=== PATIENT | male | born 1960 | race Caucasian/White ===

== ENCOUNTER 2018-02-13 17:22 | Inpatient (IN) ==
[2018-02-13] MEDS ORDERED: Sod Chloride 0.9% Inj 1,000 ML IV.SIG ONE (17:52)
--- NOTE | 2018-02-13 18:00 | ED ---
HPI General Chief Complaint: Dizziness Stated Complaint: Dizziness/equilibrium off Time Seen by Provider: 02/13/18 19:47 Source: patient Mode of arrival: ambulatory Limitations: no limitations History of Present Illness HPI Narrative: 57-year-old man who presents with 2 hours of dizziness. It is constant but most intense when he moves his head. Lying still seems to help but he still has dizziness even at rest. He denies double vision or loss of vision. He has neck pain in the back of his neck that is been present for some time. He has not had a syncopal event nor does he feel like he might. He has no chest pain or exertional dyspnea. He reports that he has been in poor health as of late. He reports bilateral ankle swelling is been present for some time and he attributes it to be on his feet a lot more than usual. No fever or chills. No facial droop, no unilateral arm or leg weakness, no loss of sensation, no slurred speech. Related Data Home Medications Medication Instructions Recorded Confirmed Creon 24,000 units PO TID 02/13/18 02/13/18 furosemide 20 mg PO BID 02/13/18 02/13/18 ibuprofen 200 mg PO DIRECTED 02/13/18 02/13/18 spironolactone 25 mg PO BID 02/13/18 02/13/18 zolpidem 5 mg PO HS 02/13/18 02/13/18 Previous Rx's Medication Instructions Recorded amoxicillin-pot clavulanate 2 tab PO BID 7 Days #28 tab 02/13/18 Allergies Allergy/AdvReac Type Severity Reaction Status Date / Time No Known Allergies Allergy Unverified 02/13/18 17:31 Review of Systems ROS: all other systems reviewed are negative [facility] Medical History Medical History Bilateral inguinal hernia (Acute) Cirrhosis (Acute) History of carotid artery stenosis (Acute) History of liver disease (Acute) Pancreatitis (Acute) Surgical History Surgical History History of cholecystectomy (Acute) History of hernia repair (Acute) Family History Family History Other No pertinent family history Social History Social History Substance History: No History of Abuse Second Hand Smoke Exposure: Yes Smoking Status: Current every day smoker Tobacco Type: Cigarettes Packs Per Day: 1.5 Cigarettes Per Day: 30.0 Years Smoked: 30 Pack-Years: 45.00 How Often Do You Have a Drink Containing Alcohol: Monthly or less Recent Travel in [facility] within the Last 8 Weeks: No Recent Out of Country Travel within the Last 8 Weeks: No Immunization History Tetanus Immunization: Unsure Hx Influenza Vaccine This Season: No Exam Narrative Exam Narrative: GENERAL: Chronically ill and thin 57-year-old man who appears older than stated age seated on exam stretcher. A male layaway clerk is seated in a chair next to his stretcher. SKIN: Focused skin assessment warm/dry. No rash or other skin lesions observed. HEAD: Atraumatic. Normocephalic. EYES: Pupils equal and round. No scleral icterus. No injection or drainage. ENT: No nasal bleeding or discharge. Mucous membranes pink and moist. NECK: Trachea midline. No JVD. CARDIOVASCULAR: Regular rate and rhythm. No murmur appreciated. RESPIRATORY: No accessory muscle use. Clear to auscultation. Breath sounds equal bilaterally. GASTROINTESTINAL: Abdomen soft, non-tender, nondistended. Hepatic and splenic margins not palpable. MUSCULOSKELETAL: No obvious deformities. No clubbing. No cyanosis. No edema. NEUROLOGICAL: Awake and alert. No obvious cranial nerve deficits. Motor grossly within normal limits. Normal speech. Symmetric but unsteady gait. Unable to tandem walk. 5 out of 5 motor strength in all 4 limbs. Sensation to light touch intact in all 4 limbs. No ataxia of upper or lower extremities. Fredo-Hallpike positive right. PSYCHIATRIC: Appropriate mood and affect; insight and judgment normal. Course Reevaluation(s) Reevaluation #1: Patient's dizziness and neck pain are improved after medication. I performed Memo maneuver on patient at this time and he tolerated it well. Instructed him to try it at home on himself. Time: 19:08 Initial Documented Vital Signs Temperature 97.7 F 02/13/18 17:28 Pulse Rate 92 H 02/13/18 17:28 Respiratory Rate 20 02/13/18 17:28 Blood Pressure 124/77 02/13/18 17:28 Pulse Oximetry 94 L 02/13/18 17:28 Last Documented Vital Signs Temperature 96.4 F L 02/15/18 00:00 Pulse Rate 90 02/15/18 00:00 Respiratory Rate 18 02/15/18 03:33 Blood Pressure 119/80 02/15/18 00:00 Pulse Oximetry 95 02/15/18 00:00 Sign Out Sign Out Data: Patient Sign Out occurred on 02/13/18 at 19:47. Patient's care was discussed, and care was transferred from Natan Reid MD to Deloris Martin MD. Sign Out Comment: Patient signed out to oncoming night physician. Discussed findings of right effusion that is consistent with a pneumonia. Also discussed my feeling that this is likely consistent with BPPV. Patient is pending repeat troponin at 3 hours. Last updated by Natan Reid MD at 02/13/18 19:28 Clinical Decision Support HEART Score Questions History: Slightly suspicious Age: 45-64 years Risk Factors: 1-2 Risk Factors Initial Troponin: Normal Limit Medical Decision Making MDM Narrative Medical decision making narrative: Chronically ill 57-year-old man with 2 hour history of positional dizziness. Although he has vascular risk factors I feel that a posterior circulation stroke is less likely on the basis of exam. He had a positive Fredo-Hallpike test and there are no cranial nerve abnormalities that I would expect with possible posterior stroke. He does not have truncal ataxia which suggest against cerebellar stroke or bleed. However I will obtain CT head given his health issues. Will also check electrolytes, renal function, blood glucose value and cell counts. I doubt the dizziness is an anginal equivalent but given his vascular risk factors I will order ECG and serial troponins. We will give meclizine for dizziness and attempt Memo maneuver. Patient was identified to have right pleural effusion and changes concerning for right lower lobe infiltrate on portable chest x-ray was treated with Rocephin and azithromycin with prescription provided for Augmentin at time of discharge. 3 hour troponin pending. Patient reports that he has had no chest pain but notes pleuritic chest pain with deep inspiratory effort has had shortness of breath has had weight loss and states he was not aware he had to wait for a troponin but is willing to do so is aware he was supposed receive antibiotics prior to being discharged. Patient does have primary care provider that he can follow with as an outpatient. However in view of effusion possible pneumonia versus mass with O2 saturation 91% on room air patient will be given DuoNeb updraft and CTA pulmonary angiogram will be ordered and will reassess patient afterwards to see if O2 saturations in acceptable range except 96% as noted upon arrival to the emergency department. Medical Screen Exam Complete: Yes Emergency Medical Condition: Yes Lab Data Lab results reviewed: Yes I reviewed the patient's lab results. Result diagrams: 02/15/18 04:55 02/15/18 04:55 Lab Results 02/13/18 02/13/18 02/13/18 Range/Units 18:10 18:10 21:15 CBC w Diff Slide review pending WBC 15.7 H (4.0-11.0) th/mm3 RBC 5.04 (4.50-5.90) mil/mm3 Hgb 14.5 (13.0-17.0) gm/dL Hct 43.9 (39.0-51.0) % MCV 87.1 (80.0-100.0) fL MCH 28.8 (27.0-34.0) pg MCHC 33.0 (32.0-36.0) % RDW 14.8 (11.6-17.2) % Plt Count 753 H (150-450) th/mm3 MPV 8.0 (7.0-11.0) fL Neut % (Auto) (16.0-70.0) % Lymph % (Auto) (9.0-44.0) % Traill % (Auto) (0.0-8.0) % Eos % (Auto) (0.0-4.0) % Baso % (Auto) (0.0-2.0) % Neut # (Auto) (1.8-7.7) th/mm3 Lymph # (Auto) (1.0-4.8) th/mm3 Traill # (Auto) (0.0-0.9) th/mm3 Eos # (Auto) (0.0-0.4) th/mm3 Baso # (Auto) (0.0-0.2) th/mm3 WBC Differential Manual diff final Diff Scan Seg Neuts % (Manual) 82 H (16-70) % Band Neuts % (Manual) 3 (0-6) % Lymphocytes % (Manual) 4 L (9-44) % Monocytes % (Manual) 7 (0-8) % Eosinophils % (Manual) 4 (0-4) % Abs Neuts (Manual) 13.3 H (1.8-7.7) th/mm3 Differential Comment . Platelet Estimate High H (Normal) Platelet Morphology Normal (Normal) RBC Morphology Normal (Normal) PT (9.8-11.6) sec INR Ratio APTT Sodium 133 L (136-145) meq/L Potassium 4.6 (3.5-5.1) meq/L Chloride 104 (98-107) meq/L Carbon Dioxide 22.9 (21.0-32.0) meq/L Anion Gap 6 (5-15) meq/L BUN 13 (7-18) mg/dL Creatinine 0.70 (0.60-1.30) mg/dL Estimated GFR Greater than 89 (>89) mL/min Random Glucose 80 (74-106) mg/dL Calcium 7.3 L* (8.5-10.1) mg/dL Prot Corrected Calcium 9.0 (8.5-10.1) mg/dL Total Bilirubin (0.2-1.0) mg/dL AST (15-37) U/L ALT (12-78) U/L Alkaline Phosphatase (45-117) U/L Troponin I Less than 0.02 L Less than 0.02 L (0.02-0.05) ng/mL Total Protein 4.2 L (6.4-8.2) g/dL Albumin (3.4-5.0) g/dL Pleural RBC (0-0) /mm3 Pleural Nuc Cells (0-10) /mm3 Pleural Neutrophils % Pleural Lymphocytes % Pleural Monocytes % Pleural Histocytes % Pleural Total Protein gm/dL Pleural LDH U/L Pleural Glucose mg/dL Pleural Amylase U/L 02/14/18 02/14/18 02/14/18 Range/Units 04:47 04:47 08:34 CBC w Diff Slide review pending WBC 12.8 H (4.0-11.0) th/mm3 RBC 4.56 (4.50-5.90) mil/mm3 Hgb 13.4 (13.0-17.0) gm/dL Hct 40.7 (39.0-51.0) % MCV 89.3 (80.0-100.0) fL MCH 29.3 (27.0-34.0) pg MCHC 32.8 (32.0-36.0) % RDW 14.7 (11.6-17.2) % Plt Count 639 H (150-450) th/mm3 MPV 7.6 (7.0-11.0) fL Neut % (Auto) 83.4 H (16.0-70.0) % Lymph % (Auto) 3.7 L (9.0-44.0) % Traill % (Auto) 8.7 H (0.0-8.0) % Eos % (Auto) 1.6 (0.0-4.0) % Baso % (Auto) 2.6 H (0.0-2.0) % Neut # (Auto) 10.6 H (1.8-7.7) th/mm3 Lymph # (Auto) 0.5 L (1.0-4.8) th/mm3 Traill # (Auto) 1.1 H (0.0-0.9) th/mm3 Eos # (Auto) 0.2 (0.0-0.4) th/mm3 Baso # (Auto) 0.3 H (0.0-0.2) th/mm3 WBC Differential . Diff Scan Auto diff confirmed Seg Neuts % (Manual) (16-70) % Band Neuts % (Manual) (0-6) % Lymphocytes % (Manual) (9-44) % Monocytes % (Manual) (0-8) % Eosinophils % (Manual) (0-4) % Abs Neuts (Manual) (1.8-7.7) th/mm3 Differential Comment . Platelet Estimate High H (Normal) Platelet Morphology Normal (Normal) RBC Morphology (Normal) PT (9.8-11.6) sec INR Ratio APTT Cancelled Sodium 135 L (136-145) meq/L Potassium 4.2 (3.5-5.1) meq/L Chloride 106 (98-107) meq/L Carbon Dioxide 20.8 L (21.0-32.0) meq/L Anion Gap 8 (5-15) meq/L BUN 13 (7-18) mg/dL Creatinine 0.57 L (0.60-1.30) mg/dL Estimated GFR Greater than 89 (>89) mL/min Random Glucose 79 (74-106) mg/dL Calcium 7.6 L (8.5-10.1) mg/dL Prot Corrected Calcium (8.5-10.1) mg/dL Total Bilirubin 0.1 L (0.2-1.0) mg/dL AST 26 (15-37) U/L ALT 18 (12-78) U/L Alkaline Phosphatase 77 (45-117) U/L Troponin I (0.02-0.05) ng/mL Total Protein 4.1 L (6.4-8.2) g/dL Albumin 1.2 L (3.4-5.0) g/dL Pleural RBC (0-0) /mm3 Pleural Nuc Cells (0-10) /mm3 Pleural Neutrophils % Pleural Lymphocytes % Pleural Monocytes % Pleural Histocytes % Pleural Total Protein gm/dL Pleural LDH U/L Pleural Glucose mg/dL Pleural Amylase U/L 02/14/18 02/14/18 02/14/18 Range/Units 08:50 11:45 11:45 CBC w Diff WBC (4.0-11.0) th/mm3 RBC (4.50-5.90) mil/mm3 Hgb (13.0-17.0) gm/dL Hct (39.0-51.0) % MCV (80.0-100.0) fL MCH (27.0-34.0) pg MCHC (32.0-36.0) % RDW (11.6-17.2) % Plt Count (150-450) th/mm3 MPV (7.0-11.0) fL Neut % (Auto) (16.0-70.0) % Lymph % (Auto) (9.0-44.0) % Traill % (Auto) (0.0-8.0) % Eos % (Auto) (0.0-4.0) % Baso % (Auto) (0.0-2.0) % Neut # (Auto) (1.8-7.7) th/mm3 Lymph # (Auto) (1.0-4.8) th/mm3 Traill # (Auto) (0.0-0.9) th/mm3 Eos # (Auto) (0.0-0.4) th/mm3 Baso # (Auto) (0.0-0.2) th/mm3 WBC Differential Diff Scan Seg Neuts % (Manual) (16-70) % Band Neuts % (Manual) (0-6) % Lymphocytes % (Manual) (9-44) % Monocytes % (Manual) (0-8) % Eosinophils % (Manual) (0-4) % Abs Neuts (Manual) (1.8-7.7) th/mm3 Differential Comment Platelet Estimate (Normal) Platelet Morphology (Normal) RBC Morphology (Normal) PT 9.4 L (9.8-11.6) sec INR 0.9 Ratio APTT 23.6 L Sodium (136-145) meq/L Potassium (3.5-5.1) meq/L Chloride (98-107) meq/L Carbon Dioxide (21.0-32.0) meq/L Anion Gap (5-15) meq/L BUN (7-18) mg/dL Creatinine (0.60-1.30) mg/dL Estimated GFR (>89) mL/min Random Glucose (74-106) mg/dL Calcium (8.5-10.1) mg/dL Prot Corrected Calcium (8.5-10.1) mg/dL Total Bilirubin (0.2-1.0) mg/dL AST (15-37) U/L ALT (12-78) U/L Alkaline Phosphatase (45-117) U/L Troponin I (0.02-0.05) ng/mL Total Protein (6.4-8.2) g/dL Albumin (3.4-5.0) g/dL Pleural RBC 160 H (0-0) /mm3 Pleural Nuc Cells 53 H (0-10) /mm3 Pleural Neutrophils 65 % Pleural Lymphocytes 18 % Pleural Monocytes 15 % Pleural Histocytes 2 % Pleural Total Protein 0.5 gm/dL Pleural LDH 42 U/L Pleural Glucose 99 mg/dL Pleural Amylase 15 U/L 02/15/18 02/15/18 Range/Units 04:55 04:55 CBC w Diff Auto diff final WBC 13.3 H (4.0-11.0) th/mm3 RBC 4.54 (4.50-5.90) mil/mm3 Hgb 13.5 (13.0-17.0) gm/dL Hct 41.0 (39.0-51.0) % MCV 90.4 (80.0-100.0) fL MCH 29.8 (27.0-34.0) pg MCHC 33.0 (32.0-36.0) % RDW 15.3 (11.6-17.2) % Plt Count 569 H (150-450) th/mm3 MPV 7.8 (7.0-11.0) fL Neut % (Auto) 80.6 H (16.0-70.0) % Lymph % (Auto) 4.1 L (9.0-44.0) % Traill % (Auto) 8.1 H (0.0-8.0) % Eos % (Auto) 3.7 (0.0-4.0) % Baso % (Auto) 3.5 H (0.0-2.0) % Neut # (Auto) 10.7 H (1.8-7.7) th/mm3 Lymph # (Auto) 0.5 L (1.0-4.8) th/mm3 Traill # (Auto) 1.1 H (0.0-0.9) th/mm3 Eos # (Auto) 0.5 H (0.0-0.4) th/mm3 Baso # (Auto) 0.5 H (0.0-0.2) th/mm3 WBC Differential . Diff Scan Seg Neuts % (Manual) (16-70) % Band Neuts % (Manual) (0-6) % Lymphocytes % (Manual) (9-44) % Monocytes % (Manual) (0-8) % Eosinophils % (Manual) (0-4) % Abs Neuts (Manual) (1.8-7.7) th/mm3 Differential Comment . Platelet Estimate (Normal) Platelet Morphology (Normal) RBC Morphology (Normal) PT (9.8-11.6) sec INR Ratio APTT Sodium 139 (136-145) meq/L Potassium 4.7 (3.5-5.1) meq/L Chloride 106 (98-107) meq/L Carbon Dioxide 24.7 (21.0-32.0) meq/L Anion Gap 8 (5-15) meq/L BUN 12 (7-18) mg/dL Creatinine 0.66 (0.60-1.30) mg/dL Estimated GFR Greater than 89 (>89) mL/min Random Glucose 94 (74-106) mg/dL Calcium 7.6 L (8.5-10.1) mg/dL Prot Corrected Calcium (8.5-10.1) mg/dL Total Bilirubin (0.2-1.0) mg/dL AST (15-37) U/L ALT (12-78) U/L Alkaline Phosphatase (45-117) U/L Troponin I (0.02-0.05) ng/mL Total Protein (6.4-8.2) g/dL Albumin (3.4-5.0) g/dL Pleural RBC (0-0) /mm3 Pleural Nuc Cells (0-10) /mm3 Pleural Neutrophils % Pleural Lymphocytes % Pleural Monocytes % Pleural Histocytes % Pleural Total Protein gm/dL Pleural LDH U/L Pleural Glucose mg/dL Pleural Amylase U/L Imaging Data Radiologist's impression: Chest X-Ray 02/13/18 17:52 CONCLUSION: New small to moderate right effusion with consolidation in the right lower lobe most characteristic of pneumonia. Head CT 02/13/18 17:52 CONCLUSION: 1. No acute hemorrhage, mass affect or evidence of acute infarction. 2. Focal area of encephalomalacia involving the posterior right frontal lobe most consistent with sequelae of prior infarction or hemorrhage. . Chest CTA 02/13/18 20:01 CONCLUSION: 1. No evidence of acute pulmonary embolism. 2. Right hilar mass with narrowing of the right pulmonary artery and proximal branch vessels. Findings concerning for adenopathy versus primary bronchogenic carcinoma. 3. Moderate size right effusion with consolidation in the right lower lobe. 4. Underlying emphysema. Chest X-Ray 02/14/18 00:00 CONCLUSION: Status post right thoracentesis. No evidence of pneumothorax. Thoracentesis Ultrasound 02/14/18 00:00 CONCLUSION: 1. Status post successful right-sided thoracentesis. Discharge Plan Discharge Disposition Patient Disposition: 30 Still Patient Discharge Condition Condition: Stable Discharge Details Diagnosis: Pneumonia of right lower lobe due to infectious organism, Pleural effusion on right, Dizziness Physicians Team ED Provider: Deloris Martin Primary Care Provider: Clifton Red Attending Provider: Gianni Jin Other Providers: Carleen Miranda ; Adam Mulligan Status ED Status: Left Department Discharge Information Discharge Date/Time: 02/13/18 23:57
--- NOTE | 2018-02-13 18:29 | XR ---
EXAM DATE: 02/13/2018 6:24 PM EDT AGE/SEX: 57 years / Male INDICATIONS: Short of breath, cough CLINICAL DATA: This is the patient's initial encounter. Patient reports that signs and symptoms have been present for 2 days and indicates a pain score of 0/10. MEDICAL/SURGICAL HISTORY: . Pancreatitis. Cirrhosis None. COMPARISON: [facility], CHEST SINGLE AP, 02/20/2016. . FINDINGS: 2 AP views of the chest were obtained and demonstrate new small to moderate right pleural effusion wi th blunting of the right costophrenic angle. There is consolidative opacity in the right lower lobe a nd right infrahilar region. The left lung is clear. The heart size is within normal limits. The bony thorax is intact. There are mild atherosclerotic changes involving the aorta. There are overlying boubacar ctrocardiogram leads. CONCLUSION: New small to moderate right effusion with consolidation in the right lower lobe most characteristic o f pneumonia. Electronically signed by: Gianni Joya MD 02/13/2018 6:27 PM EDT
--- NOTE | 2018-02-13 18:56 | CT ---
EXAM DATE: 02/13/2018 6:50 PM EDT AGE/SEX: 57 years / Male INDICATIONS: Dizziness. CLINICAL DATA: This is the patient's initial encounter. Patient reports that signs and symptoms have been present for 1 day and indicates a pain score of 0/10. MEDICAL/SURGICAL HISTORY: . Bilateral inguinal hernia. Carotid artery stenosis. Liver disease. Non e. RADIATION DOSE: 49.78 CTDI (mGy) COMPARISON: No prior exams available for comparison. TECHNIQUE: CT of the head without contrast. Using automated exposure control and adjustment of the mA and/or kV according to patient size, radiation dose was kept as low as reasonably achievable to ob tain optimal diagnostic quality images. DICOM format image data is available electronically for revi ew and comparison. FINDINGS: Cerebrum: The ventricles are normal for age. No evidence of midline shift, mass lesion, hemorrhage or acute infarction. There is a focal area of encephalomalacia involving the posterior right frontal lobe. No extraaxial fluid collections are seen. Posterior Fossa: The cerebellum and brainstem are intact. The 4th ventricle is midline. The cerebe llopontine angle is unremarkable. Extracranial: The visualized portion of the orbits is intact. Skull: The calvaria is intact. No evidence of skull fracture. CONCLUSION: 1. No acute hemorrhage, mass affect or evidence of acute infarction. 2. Focal area of encephalomalacia involving the posterior right frontal lobe most consistent with se quelae of prior infarction or hemorrhage. . Electronically signed by: Gianni Joya MD 02/13/2018 6:55 PM EDT
[2018-02-13 18:57] LABS: Hematocrit 43.9 % (39.0-51.0); Hemoglobin 14.5 gm/dL (13.0-17.0); Mean Corpuscular Hemoglobin 28.8 pg (27.0-34.0); Mean Corpuscular Volume 87.1 fL (80.0-100.0); Platelet Count 753 th/mm3 (150-450); Red Blood Count 5.04 mil/mm3 (4.50-5.90); Red Cell Distribution Width 14.8 % (11.6-17.2); White Blood Count 15.7 th/mm3 (4.0-11.0)
[2018-02-13 19:01] LABS: Chloride 104 meq/L (98-107); Potassium 4.6 meq/L (3.5-5.1); Sodium 133 meq/L (136-145)
[2018-02-13] MEDS ORDERED: Azithromycin 250 MG Tablet PO ONE (19:06)
[2018-02-13 19:13] LABS: Eosinophils 4 % (0-4); Lymphocytes 4 % (9-44); Monocytes 7 % (0-8); Platelet Morphology Normal (Normal); RBC Morphology Normal (Normal)
[2018-02-13 19:20] LABS: Anion Gap 6 meq/L (5-15); Blood Urea Nitrogen 13 mg/dL (7-18); Calcium 7.3 mg/dL (8.5-10.1); Carbon Dioxide 22.9 meq/L (21.0-32.0); Glomerular Filtration Rate Greater Than 89 mL/min (>89); Glucose,Random 80 mg/dL (74-106)
[2018-02-13 19:33] LABS: Total Protein 4.2 g/dL (6.4-8.2)
[2018-02-13] MEDS ORDERED: Sodium Chlor 0.9% Inj 500 ML IV.SIG SCH (21:00)
--- NOTE | 2018-02-13 21:28 | CT ---
EXAM DATE: 02/13/2018 9:23 PM EDT AGE/SEX: 57 years / Male INDICATIONS: Dizziness. Possible embolism. CLINICAL DATA: This is the patient's initial encounter. Patient reports that signs and symptoms have been present for 1 day and indicates a pain score of 0/10. MEDICAL/SURGICAL HISTORY: . Bilateral inguinal hernia. Carotid artery stenosis. Liver disease. Cho lecystectomy. RADIATION DOSE: 8.27 CTDI (mGy) COMPARISON: [facility], CHEST 1V SINGLE AP, 02/13/2018. . TECHNIQUE: Volumetric scanning was performed using a multi-row detector CT scanner during bolus infu corie of 75 ml Omnipaque 350 (iohexol) nonionic water-soluble contrast as a single exam dose. The collin a was post processed with a variety of visualization algorithms including full volume maximum intensi ty projection and sliding thin slab reformation. Using automated exposure control and adjustment of t he mA and/or kV according to patient size, radiation dose was kept as low as reasonably achievable to obtain optimal diagnostic quality images. DICOM format image data is available electronically for r eview and comparison. FINDINGS: Pulmonary Arteries: No filling defects are seen in the pulmonary arteries out to the subsegmental ve ssels. The left and right pulmonary arteries are normal in diameter. Lung: There is consolidation in the right lung base which may be compressive. The left lung is clear . Lungs are hyperinflated with underlying emphysema. Effusion: There is a moderate-sized right pleural effusion minimal left pleural effusion. Mediastinum: There is right hilar mass versus adenopathy with attenuation of the right pulmonary art yoselin branch vessels. The mass measures up to at least 5 cm. Other: The axilla is unremarkable. CONCLUSION: 1. No evidence of acute pulmonary embolism. 2. Right hilar mass with narrowing of the right pulmonary artery and proximal branch vessels. Findin gs concerning for adenopathy versus primary bronchogenic carcinoma. 3. Moderate size right effusion with consolidation in the right lower lobe. 4. Underlying emphysema. Electronically signed by: Gianni Joya MD 02/13/2018 9:26 PM EDT
[2018-02-13] MEDS ORDERED: Bisacodyl 10 MG Supp RECTAL PRN (22:21)
[2018-02-14] MEDS: Zolpidem Tartrate 5 MG Tablet PO PRN ×2 (00:12→21:38)
[2018-02-14] MEDS: Sod Chloride 0.9% Inj 1,000 ML IV.CONT SCH ×3 (00:20→18:50)
[2018-02-14] MEDS ORDERED: Benzonatate 100 MG Capsule PO PRN (03:40)
[2018-02-14 06:11] LABS: Baso # (Auto) 0.3 th/mm3 (0.0-0.2); Baso % (Auto) 2.6 % (0.0-2.0); Eos # (Auto) 0.2 th/mm3 (0.0-0.4); Eos % (Auto) 1.6 % (0.0-4.0); Hematocrit 40.7 % (39.0-51.0); Hemoglobin 13.4 gm/dL (13.0-17.0); Lymph # (Auto) 0.5 th/mm3 (1.0-4.8); Lymph % (Auto) 3.7 % (9.0-44.0); Mean Corpuscular HGB Conc 32.8 % (32.0-36.0); Mean Corpuscular Hemoglobin 29.3 pg (27.0-34.0); Mean Corpuscular Volume 89.3 fL (80.0-100.0); Mean Platelet Volume 7.6 fL (7.0-11.0); Mono # (Auto) 1.1 th/mm3 (0.0-0.9); Mono % (Auto) 8.7 % (0.0-8.0); Neut # (Auto) 10.6 th/mm3 (1.8-7.7); Neut % (Auto) 83.4 % (16.0-70.0); Platelet Count 639 th/mm3 (150-450); Red Blood Count 4.56 mil/mm3 (4.50-5.90); Red Cell Distribution Width 14.7 % (11.6-17.2); White Blood Count 12.8 th/mm3 (4.0-11.0)
[2018-02-14 06:14] LABS: Chloride 106 meq/L (98-107); Potassium 4.2 meq/L (3.5-5.1); Sodium 135 meq/L (136-145)
[2018-02-14 06:20] LABS: Albumin 1.2 g/dL (3.4-5.0); Anion Gap 8 meq/L (5-15); Blood Urea Nitrogen 13 mg/dL (7-18); Calcium 7.6 mg/dL (8.5-10.1); Carbon Dioxide 20.8 meq/L (21.0-32.0); Glucose,Random 79 mg/dL (74-106)
[2018-02-14 06:23] LABS: Alanine Aminotransferase 18 U/L (12-78); Aspartate Aminotransferase 26 U/L (15-37); Glomerular Filtration Rate Greater Than 89 mL/min (>89)
[2018-02-14 06:25] LABS: Total Protein 4.1 g/dL (6.4-8.2)
[2018-02-14 06:26] LABS: Alkaline Phosphatase 77 U/L (45-117)
[2018-02-14 06:45] LABS: Platelet Morphology Normal (Normal)
[2018-02-14] MEDS: Acetaminophen 325 MG Tablet PO PRN ×3 (07:39→18:54)
--- NOTE | 2018-02-14 08:54 | P.HP ---
History of Present Illness Primary Care Physician: Clifton Red MD Chief Complaint: Dizziness History of Present Illness: 57-year-old male with known history of COPD, cirrhosis of liver who presented to the hospital because of dizziness. Patient states that he was in normal state of health until yesterday when he went to get up and had significant dizziness like the room was spinning. He cannot walk due to disequilibrium. The patient was concerned so he called the paramedics. They did an evaluation on him at his home and indicated that what they did was unremarkable. The indicated that if he was concerned then he should go to the hospital to get evaluated. Patient came into the hospital with dizziness. Patient was given meclizine in the emergency department with significant improvement and resolution of his dizziness. CT the brain did not indicate any acute abnormality. Incidentally the patient had chest x-ray performed which did show pleural effusion and possible consolidation. CTA of the chest was performed which did show significant right-sided pleural effusion with bronchogenic mass. It was recommended by the ER physician of the patient be observed in the hospital for further evaluation. Patient laying in bed comfortable at this time. Appears to be very cachectic, patient does have a 30 year history of smoking. He has had a weight loss over the last week with increased shortness of breath. Patient cannot quantify how much weight he has lost. Patient denies any family history of cancer. Patient denies any history of lung masses or cancer. - Diagnosis (1) Mass of right lung (2) Pneumonia of right lower lobe due to infectious organism (3) Pleural effusion on right Review of Systems All other systems reviewed negative except as stated in HPI Constitutional: Reports weight loss Respiratory: Reports shortness of breath Neurologic: Reports dizziness PMFSH - History History Provided By: Patient - Medical History Medical History: Medical History (Last Updated 02/14/18 @ 08:29 by WENDY Santoro) Bilateral inguinal hernia Cirrhosis History of carotid artery stenosis History of liver disease Pancreatitis - Surgical History Surgical History: Surgical History (Last Updated 02/14/18 @ 08:30 by WENDY Santoro) History of cholecystectomy History of hernia repair - Family History Family History: Family History (Last Updated 02/14/18 @ 08:27 by WENDY Santoro) Other No pertinent family history - Tobacco History Second Hand Smoke Exposure: Yes Tobacco Use In Past 30 Days: Yes Smoking Status: Current every day smoker Tobacco Type: Cigarettes Packs Per Day: 1.5 Years Smoked: 30 - Alcohol History How Often Do You Have a Drink Containing Alcohol: Monthly or less - Substance Use History Substance History: No History of Abuse - Travel History Recent Travel in the [place] Within the Last 8 Weeks: No Recent Travel Out of the Country Within the Last 8 Weeks: No - Immunization History Tetanus Immunization: Unsure Hx Influenza Vaccine This Season: No Medications and Allergies Active Medications: Active Medications Acetaminophen (Tylenol) 650 mg PO Q4H PRN PRN Reason: Temp > 100.4 Last Admin: 02/14/18 07:39 Dose: 650 mg Al Hydroxide/Mg Hydroxide (Milk Of Magnesia Liq) 30 ml PO Q12H PRN PRN Reason: Mild Constipation Albuterol (Duoneb Neb (Prn)) 1 ampul NEB Q4HR NEB PRN PRN Reason: SOB/WHEEZING Last Admin: 02/14/18 00:46 Dose: 1 ampul Lipase/Protease/Amylase (Creon Dr 24/76/120) 24,000 cap PO TID EYAD Benzonatate (Tessalon Perles) 100 mg PO Q8H PRN PRN Reason: COUGH Last Admin: 02/14/18 03:50 Dose: 100 mg Bisacodyl (Dulcolax Supp) 10 mg RECTAL DAILY PRN PRN Reason: SEVERE CONSITIPATION Furosemide (Lasix) 20 mg PO BID EYAD Sodium Chloride (Ns Inj) 500 mls @ 0 mls/hr IV.SIG BOLUS EYAD Azithromycin 500 mg/ Sodium (Chloride) 250 mls @ 250 mls/hr IV.SIG Q24H EYAD Ceftriaxone Sodium 1,000 mg/ (Sodium Chloride) 100 mls @ 200 mls/hr IV.SIG Q24H EYAD Sodium Chloride (Ns Inj) 1,000 mls @ 100 mls/hr IV.CONT .Q10H EYAD Last Admin: 02/14/18 00:20 Dose: 100 mls/hr Lactulose (Lactulose Liq) 30 ml PO DAILY PRN PRN Reason: SEVERE CONSITIPATION Ondansetron HCl (Zofran Inj) 4 mg IV.PUSH Q6H PRN PRN Reason: NAUSEA OR VOMITING Senna/Docusate Sodium (Sangeeta-Colace) 1 tab PO BID EYAD Sennosides (Senokot) 17.2 mg PO Q12H PRN PRN Reason: Moderate Constipation Sodium Chloride (Ns Flush) 2 ml IV.FLUSH PRN PRN PRN Reason: FLUSH AFTER USING IV ACCESS Last Admin: 02/13/18 18:21 Dose: 2 ml Spironolactone (Aldactone) 25 mg PO BID EYAD Zolpidem Tartrate (Ambien) 5 mg PO HS PRN PRN Reason: SLEEP Last Admin: 02/14/18 00:12 Dose: 5 mg Allergies Allergy/AdvReac Type Severity Reaction Status Date / Time No Known Allergies Allergy Unverified 02/13/18 17:31 Home Medications Medication Instructions Recorded Confirmed Type Creon 24,000 units PO TID 02/13/18 02/13/18 History furosemide 20 mg PO BID 02/13/18 02/13/18 History ibuprofen 200 mg PO DIRECTED 02/13/18 02/13/18 History spironolactone 25 mg PO BID 02/13/18 02/13/18 History zolpidem 5 mg PO HS 02/13/18 02/13/18 History Exam Vital signs: Vital Signs 02/13/18 17:28 02/13/18 17:53 02/13/18 18:17 Temperature 97.7 F Pulse Rate 92 H 89 Respiratory Rate 20 18 Blood Pressure 124/77 133/94 H Pulse Oximetry 94 L 96 02/13/18 20:17 02/13/18 23:40 02/14/18 00:00 Temperature 97.3 F L Pulse Rate 90 85 89 Respiratory Rate 16 16 20 Blood Pressure 99/59 L 131/87 Pulse Oximetry 97 93 L 02/14/18 00:45 02/14/18 00:47 Temperature Pulse Rate 84 Respiratory Rate 16 Blood Pressure Pulse Oximetry 95 Intake & Output 02/13/18 02/14/18 02/14/18 18:59 06:59 18:59 Intake Total 1100 / 1100 Balance 1100 / 1100 Weight 59.2 kg 59.9 kg Intake: IV 1100 / 1100 NS Inj 1,000 ML @ Wide Open IV. 1000 / 1000 SIG BOLUS ONE Rx#:[id number] Rocephin Inj 1,000 MG In NS Inj 100 / 100 100 ML @ 200 mls/hr IV.SIG ONCE ONE Rx#:[id number] Other: # Voids 1 Weight On Admission 59.9 kg Narrative: GENERAL: Well-developed, cachectic, in no acute distress. alert and orientated HEENT: Head is normocephalic without any lesions or masses noted. Facial features are symmetric. Bitemporal wasting. Eyes: Pupils equal round reactive to light. Extraocular muscles are intact. Conjunctivae were clear. Oropharyngeal : Pharynx without any erythema edema. Tongue is midline without deviation. Buccal mucosa is moist without any masses or lesions NECK: Supple without any masses. Trachea midline no deviation. No JVD, no bruits are appreciated CARDIAC: Regular rhythm, regular rate. S1/S2 are heard. No murmurs gallops or rubs. LUNGS: Patient had decreased breath sounds noted in the right lower lung field. No wheeze, rhonchi or rales. No use of accessory muscles on inspiration or expiration. ABDOMEN: Soft, nontender. Nondistended. Bowel sounds heard in all 4 quadrants. No organomegaly or masses. Negative rebound, negative guarding EXTREMITIES: No edema, pulses are equal bilaterally. No cyanosis or clubbing NEUROLOGY: Mood and affect appear appropriate. Cranial nerves II through XII grossly intact. Muscle strength 5/5 in upper and lower extremities bilaterally. Deep tendon reflexes are 2+ in upper and lower extremities bilaterally. Results - Labs CBC & Chem 7: 02/14/18 04:47 02/14/18 04:47 Labs: Laboratory Results - last 24 hr 02/13/18 02/13/18 02/13/18 18:10 18:10 21:15 CBC w Diff Slide review pending WBC 15.7 H RBC 5.04 Hgb 14.5 Hct 43.9 MCV 87.1 MCH 28.8 MCHC 33.0 RDW 14.8 Plt Count 753 H MPV 8.0 Neut % (Auto) Lymph % (Auto) Dixon % (Auto) Eos % (Auto) Baso % (Auto) Neut # (Auto) Lymph # (Auto) Dixon # (Auto) Eos # (Auto) Baso # (Auto) WBC Differential Manual diff final Diff Scan Seg Neuts % (Manual) 82 H Band Neuts % (Manual) 3 Lymphocytes % (Manual) 4 L Monocytes % (Manual) 7 Eosinophils % (Manual) 4 Abs Neuts (Manual) 13.3 H Differential Comment . Platelet Estimate High H Platelet Morphology Normal RBC Morphology Normal Sodium 133 L Potassium 4.6 Chloride 104 Carbon Dioxide 22.9 Anion Gap 6 BUN 13 Creatinine 0.70 Estimated GFR Greater than 89 Random Glucose 80 Calcium 7.3 L* Prot Corrected Calcium 9.0 Total Bilirubin AST ALT Alkaline Phosphatase Troponin I Less than 0.02 L Less than 0.02 L Total Protein 4.2 L Albumin 02/14/18 02/14/18 04:47 04:47 CBC w Diff Slide review pending WBC 12.8 H RBC 4.56 Hgb 13.4 Hct 40.7 MCV 89.3 MCH 29.3 MCHC 32.8 RDW 14.7 Plt Count 639 H MPV 7.6 Neut % (Auto) 83.4 H Lymph % (Auto) 3.7 L Dixon % (Auto) 8.7 H Eos % (Auto) 1.6 Baso % (Auto) 2.6 H Neut # (Auto) 10.6 H Lymph # (Auto) 0.5 L Dixon # (Auto) 1.1 H Eos # (Auto) 0.2 Baso # (Auto) 0.3 H WBC Differential . Diff Scan Auto diff confirmed Seg Neuts % (Manual) Band Neuts % (Manual) Lymphocytes % (Manual) Monocytes % (Manual) Eosinophils % (Manual) Abs Neuts (Manual) Differential Comment . Platelet Estimate High H Platelet Morphology Normal RBC Morphology Sodium 135 L Potassium 4.2 Chloride 106 Carbon Dioxide 20.8 L Anion Gap 8 BUN 13 Creatinine 0.57 L Estimated GFR Greater than 89 Random Glucose 79 Calcium 7.6 L Prot Corrected Calcium Total Bilirubin 0.1 L AST 26 ALT 18 Alkaline Phosphatase 77 Troponin I Total Protein 4.1 L Albumin 1.2 L - Imaging Impressions Chest X-Ray 02/13/18 17:52 CONCLUSION: New small to moderate right effusion with consolidation in the right lower lobe most characteristic of pneumonia. Head CT 02/13/18 17:52 CONCLUSION: 1. No acute hemorrhage, mass affect or evidence of acute infarction. 2. Focal area of encephalomalacia involving the posterior right frontal lobe most consistent with sequelae of prior infarction or hemorrhage. . Chest CTA 02/13/18 20:01 CONCLUSION: 1. No evidence of acute pulmonary embolism. 2. Right hilar mass with narrowing of the right pulmonary artery and proximal branch vessels. Findings concerning for adenopathy versus primary bronchogenic carcinoma. 3. Moderate size right effusion with consolidation in the right lower lobe. 4. Underlying emphysema. Caprini VTE Risk Assessment Caprini VTE Risk Assessment: Moderate/High Risk (score >= 2) Caprini Risk Assessment Model: Point Value = 1 Point Value = 2 Point Value = 3 Point Value = 5 Age 41-60 Minor surgery BMI > 25 kg/m2 Swollen legs Varicose veins or History of unexplained or recurrent spontaneous Oral contraceptives or hormone replacement Sepsis (< 1 month) Serious lung disease, including pneumonia (< 1 month) Abnormal pulmonary function Acute myocardial infarction Congestive heart failure (< 1 month) History of inflammatory bowel disease Medical patient at bed rest Age 61-74 Arthroscopic surgery Major open surgery (> 45 min) Laparoscopic surgery (> 45 min) Malignancy Confined to bed (> 72 hours) Immobilizing plaster cast Central venous access Age >= 75 History of VTE Family history of VTE Factor V Leiden Prothrombin [id number] Lupus anticoagulant Anticardiolipin antibodies Elevated serum homocysteine Heparin-induced thrombocytopenia Other congenital or acquired thrombophilia Stroke (< 1 month) Elective arthroplasty Hip, pelvis, or leg fracture Acute spinal cord injury (< 1 month) Prophylaxis Regimen: Total Risk Factor Score Risk Level Prophylaxis Regimen 0-1 Low Early ambulation 2 Moderate Order ONE of the following: *Sequential Compression Device (SCD) *Heparin 5000 units SQ BID 3-4 Higher Order ONE of the following medications: *Heparin 5000 units SQ TID *Enoxaparin/Lovenox 40 mg SQ daily (WT < 150 kg, CrCl > 30 mL/min) *Enoxaparin/Lovenox 30 mg SQ daily (WT < 150 kg, CrCl > 10-29 mL/min) *Enoxaparin/Lovenox 30 mg SQ BID (WT < 150 kg, CrCl > 30 mL/min) AND/OR *Sequential Compression Device (SCD) 5 or more Highest Order ONE of the following medications: *Heparin 5000 units SQ TID (Preferred with Epidurals) *Enoxaparin/Lovenox 40 mg SQ daily (WT < 150 kg, CrCl > 30 mL/min) *Enoxaparin/Lovenox 30 mg SQ daily (WT < 150 kg, CrCl > 10-29 mL/min) *Enoxaparin/Lovenox 30 mg SQ BID (WT < 150 kg, CrCl > 30 mL/min) AND *Sequential Compression Device (SCD) Assessment and Plan - Assessment (1) Mass of right lung Code(s): R91.8 - Other nonspecific abnormal finding of lung field Status: Acute (2) Pneumonia of right lower lobe due to infectious organism Code(s): J18.1 - Lobar pneumonia, unspecified organism Status: Acute (3) Pleural effusion on right Code(s): J90 - Pleural effusion, not elsewhere classified Status: Acute - Plan Right lung mass with large pleural effusion -High suspicion for cancer/malignancy, secondary to pleural effusion, lung mass , tobacco use, weight loss, -Obtain ultrasound-guided thoracentesis with studies to include cytology, cell count, glucose, total protein, culture, LDH, AFP, fungal testing -Oncology has been consulted, discussed with them that obtaining the fluid would be essential and diagnosis -Given the location of the mass, bronchoscopy might not be appropriate evaluation Pneumonia of the right lung -Continue antibiotics consistent with community acquired pneumonia to include Rocephin and Zithromax -Obtain sputum culture -Duo nebs -Mucinex Dizziness, resolved -CT scan of the brain did not indicate any acute abnormality -Continue meclizine History of cirrhosis, chronic pancreatitis -Continue home medications Chronic obstructive pulmonary disease -Continue O2 supplementation maintain O2 sats greater than 92% -Continue duo nebs DVT prevention -Sequential compression devices, avoid chemical prophylaxis at this time secondary to impending procedures
[2018-02-14] MEDS ORDERED: Lipase/Protease/Amylase 24/76/120 DR Capsule PO ONE (09:00)
[2018-02-14] MEDS ORDERED: Lipase/Protease/Amylase 24/76/120 DR Capsule PO SCH (09:00)
[2018-02-14 09:27] LABS: Activated Partial Thrombo Time 23.6 sec (24.3-30.1); INR 0.9 Ratio; Prothrombin Time 9.4 sec (9.8-11.6)
[2018-02-14] MEDS: Furosemide 20 MG Tablet PO SCH ×2 (10:08→21:39)
[2018-02-14] MEDS: Spironolactone 25 MG Tablet PO SCH ×2 (10:08→21:39)
[2018-02-14] MEDS: guaiFENesin 600 MG ER Tablet PO SCH ×2 (10:08→21:39)
[2018-02-14] MEDS: Senna/Docusate Sodium 8.6/50 MG Tablet PO SCH ×2 (10:11→21:39)
--- NOTE | 2018-02-14 12:11 | XR ---
EXAM DATE: 02/14/2018 12:04 PM EDT AGE/SEX: 57 years / Male INDICATIONS: Post Thoracentesis. CLINICAL DATA: This is the patient's initial encounter. Patient reports that signs and symptoms have been present for 1 day and indicates a pain score of 3/10. MEDICAL/SURGICAL HISTORY: . Pancreatitis. Cirrhosis None. COMPARISON: [facility], CHEST 1V SINGLE AP, 02/13/2018. . FINDINGS: Status post right thoracentesis. There is no evidence of pneumothorax. The previously noted right ple ural effusion has been successfully drained. There is some mild residual blunting of the right costop hrenic angle. There are chronic interstitial changes throughout both lungs. Otherwise, the lungs are grossly clear. The heart size is within normal limits. The bony structures are stable. CONCLUSION: Status post right thoracentesis. No evidence of pneumothorax. Electronically signed by: David Jackson MD 02/14/2018 12:10 PM EDT
--- NOTE | 2018-02-14 13:08 | US ---
EXAM DATE: 02/14/2018 12:18 PM EDT AGE/SEX: 57 years / Male INDICATIONS: Right pleural effusion. CLINICAL DATA: This is the patient's initial encounter. Patient reports that signs and symptoms have been present for 1 day and indicates a pain score of 0/10. MEDICAL/SURGICAL HISTORY: . Cirrhosis. Inguinal hernia. Cholecystectomy. Hernia repair. COMPARISON: [facility], CT THORAX W CONTRAST, 12/30/2015. . FLUID: Total volume of 2,200 cc of clear, yellow fluid was removed. Fluid was sent to lab for ordered studies. . . TECHNIQUE: Ultrasound guidance for thoracentesis. Thoracentesis. The risks, benefits, and alternatives to ultrasound guided thoracentesis were explained to the patien t in lay simple terms, including the risk of bleeding and infection. Written and verbal informed con sent was obtained. Appropriate area for right thoracentesis was marked under ultrasound guidance with the patient in the upright position. Overlying skin was prepped and draped in the usual sterile fashion and with local anesthetic, a dermatotomy was made with an 11 blade scalpel. A 6 Romanian thoracentesis catheter was placed in the pleural space and fluid was removed. Catheter was then removed and a sterile dressing applied. There were no immediate complications. The patient tolerated the procedure well and the lef t the ultrasound suite in stable condition. Chest radiograph is to be obtained. FINDINGS: Right-sided pleural effusion. CONCLUSION: 1. Status post successful right-sided thoracentesis. Electronically signed by: David Jackson MD 02/14/2018 1:06 PM EDT
[2018-02-14 13:26] LABS: Lymphocytes,Pleural Fluid 18 %; Monocytes,Pleural Fluid 15 %; Neutrophils,Pleural Fluid 65 %; RBC,Pleural Fluid 160 /mm3 (0-0)
[2018-02-14] MEDS: Lipase/Protease/Amylase 24/76/120 DR Capsule PO SCH ×2 (13:45→18:50)
[2018-02-14 14:56] LABS: Total Protein,Pleural Fluid 0.5 gm/dL
--- NOTE | 2018-02-14 17:23 | ECG ---
Date Performed: 02/13/2018 Time Performed: 17:54:25 PTAGE: 57 years EKG: Junctional rhythm, based on the absence of P waves. When compared to previous tracing, the absence of P waves is New, previous tracing showed Sinus rhythm . ATYPICAL ECG PREVIOUS TRACING : 12/31/2015 07.27 DOCTOR: Darrin Sanchez Interpretating Date/Time 02/14/2018 17:21:59
--- NOTE | 2018-02-14 22:39 | MB ---
cc: Carleen Miranda MD, Camille MD DATE: 02/14/2018 REFERRING PROVIDER: Nori Lira MD CHIEF COMPLAINT: Dr. Lira requested a consultation for Mr. Shannon with a new right pleural effusion. HISTORY OF PRESENT ILLNESS: Mr. Shannon is a 57-year-old man with a history of liver disease. He was previously under the care of Dr. Noel Marcus. He reports he is stable from his liver disease. A month ago, he developed TIA symptoms in the left side of his face. He was attended to by a new primary physician, who coordinated carotid Doppler ultrasounds, the results of which are still pending. He developed symptoms of weight loss, headaches, pressure-like on the top of his head, nausea associated with the headaches. He developed dizziness and dysequilibrium the day of the presentation to the emergency room. He had a CT scan of the head that was negative for acute hemorrhage, mass effect or infarction. There was focal area of encephalomalacia involving the posterior right frontal lobe consistent with prior infarction or hemorrhage. Because of his abnormal x-ray, a CT angiogram was performed. He has no pulmonary embolism. However, there is a right hilar mass with narrowing of the right pulmonary artery and proximal branch vessels. This is concerning for adenopathy versus bronchogenic carcinoma. There is a moderate right-sided pleural effusion and consolidation of the right lower lobe. He underwent a right-sided thoracentesis. The cytology is still pending. He feels better after the thoracentesis. He denies any fevers, chills or night sweats. He has had some dizziness symptoms, which have now resolved. He feels better after the thoracentesis. He denies any changes in bowel habits. No urinary complaints. He has had headaches and nausea. The rest of his review of system is negative. He continues to smoke, but does plan on quitting. PAST MEDICAL HISTORY: Right hilar mass, right pleural effusion, history of pancreatitis, history of liver disease, reactive thrombocytosis, hypoalbuminemia, hypocalcemia, unintentional weight loss. PAST SURGICAL HISTORY: Cholecystectomy, hernia repair. FAMILY HISTORY: Biologic father in his 80s of cancer. Mother of congestive heart failure in her 70s. SOCIAL HISTORY: He lives with his adopted father. He is a current day smoker of approximately 1-1/2 packs per day. He smoked for over 30 years. He drinks occasionally. Denies any illicit drug use. ALLERGIES: NO KNOWN DRUG ALLERGIES. MEDICATIONS: Include: 1. Acetaminophen. 2. Milk of magnesia p.r.n. 3. DuoNeb. 4. Creon. 5. Azithromycin. 6. Tessalon Perles. 7. Dulcolax. 8. Ceftriaxone. 9. Lasix. 10. Mucinex. 11. Lactulose. 12. Antivert. 13. Zofran. 14. Senokot. 15. Aldactone. 16. Ambien p.r.n. PHYSICAL EXAMINATION: VITAL SIGNS: Temperature 97.8, heart rate 90, respiratory rate 20, blood pressure 104/68, saturation 95%. GENERAL: Mr. Shannon is a slender, cachectic-appearing man who looks older than his stated age. He has some male pattern baldness. HEENT: His pupils are round and reactive to light and accommodation. Oropharynx is clear. NECK: Supple. LUNGS: With diminished breath sounds throughout, particularly in the right lung base. Dullness in the right lung base. CARDIOVASCULAR: Reveals a normal rate and rhythm. ABDOMEN: Flat and benign, scaphoid. EXTREMITIES: No edema. NEUROLOGIC: Nonfocal. LABORATORY DATA: PT, PTT are normal. WBC 12.8, platelet count 639. Chemistry with BUN of 13, creatinine 0.57, albumin 1.2. ASSESSMENT AND PLAN: Mr. Shannon is a 57-year-old man with a history of liver disease, presents with unintentional weight loss, vertigo, headaches associated with nausea. He complains of transient left lower facial weakness about a month ago. We discussed the finding on imaging study of the right-sided pleural effusion. There is also a hilar mass. We discussed bronchoscopic evaluation to possibly confirm a diagnosis pending the cytology from the pleural fluid. A direct care supervisor will be consulted. We discussed the workup can continue on an outpatient basis. I anticipate that the pleural effusion would resume or return. Hopefully, we would have an answer from the cytology prior to that time. There is no contraindication to discharge from an oncology standpoint. He will be given a followup appointment this week to review the pathology results. He tolerated the thoracentesis well. We will obtain an MRI of the brain as the etiology of the headaches and the nausea associated with the headaches is not clear. I would like to exclude central nervous system metastatic disease. CT scan is not revealing this. His questions were answered to his satisfaction. MD BRI Huertas/shilpa , 06:59 PM , 07:10 PM
[2018-02-15] MEDS: Acetaminophen 325 MG Tablet PO PRN ×6 (00:25→22:12)
[2018-02-15] MEDS: Azithromycin Inj 500 MG in Sodium Chlor 0.9% Inj 250 ML IV.SIG SCH ×2 (00:26→22:14)
[2018-02-15] MEDS: Sod Chloride 0.9% Inj 1,000 ML IV.CONT SCH (04:28)
[2018-02-15 06:38] LABS: Baso # (Auto) 0.5 th/mm3 (0.0-0.2); Baso % (Auto) 3.5 % (0.0-2.0); Eos # (Auto) 0.5 th/mm3 (0.0-0.4); Eos % (Auto) 3.7 % (0.0-4.0); Hemoglobin 13.5 gm/dL (13.0-17.0); Lymph # (Auto) 0.5 th/mm3 (1.0-4.8); Lymph % (Auto) 4.1 % (9.0-44.0); Mean Corpuscular Hemoglobin 29.8 pg (27.0-34.0); Mean Corpuscular Volume 90.4 fL (80.0-100.0); Mean Platelet Volume 7.8 fL (7.0-11.0); Mono # (Auto) 1.1 th/mm3 (0.0-0.9); Mono % (Auto) 8.1 % (0.0-8.0); Neut # (Auto) 10.7 th/mm3 (1.8-7.7); Neut % (Auto) 80.6 % (16.0-70.0); Platelet Count 569 th/mm3 (150-450); Red Blood Count 4.54 mil/mm3 (4.50-5.90); Red Cell Distribution Width 15.3 % (11.6-17.2); White Blood Count 13.3 th/mm3 (4.0-11.0)
[2018-02-15 06:49] LABS: Chloride 106 meq/L (98-107); Sodium 139 meq/L (136-145)
[2018-02-15 06:56] LABS: Potassium 4.7 meq/L (3.5-5.1)
[2018-02-15 07:01] LABS: Calcium 7.6 mg/dL (8.5-10.1)
[2018-02-15 07:02] LABS: Anion Gap 8 meq/L (5-15); Blood Urea Nitrogen 12 mg/dL (7-18); Carbon Dioxide 24.7 meq/L (21.0-32.0); Glucose,Random 94 mg/dL (74-106)
[2018-02-15 07:05] LABS: Glomerular Filtration Rate Greater Than 89 mL/min (>89)
[2018-02-15] MEDS: Furosemide 20 MG Tablet PO SCH ×2 (09:33→20:25)
[2018-02-15] MEDS: guaiFENesin 600 MG ER Tablet PO SCH ×2 (09:33→20:25)
[2018-02-15] MEDS: Spironolactone 25 MG Tablet PO SCH ×2 (09:33→20:25)
[2018-02-15] MEDS: Lipase/Protease/Amylase 24/76/120 DR Capsule PO SCH ×3 (09:33→17:44)
[2018-02-15] MEDS: Senna/Docusate Sodium 8.6/50 MG Tablet PO SCH ×2 (09:33→20:25)
--- NOTE | 2018-02-15 10:08 | P.PN ---
Subjective Interval history: 57-year-old who is seen and examined today for follow-up on pleural effusion, lung mass. Patient status post thoracentesis and does feel much improved. Respiratory status has improved. Patient denies any new complaints. Patient vital signs are stable, patient remains afebrile Physical Exam Vital signs: Vital Signs 02/14/18 10:05 02/14/18 10:30 02/14/18 12:47 Temperature 96.6 F L Pulse Rate 88 91 H Respiratory Rate 19 Blood Pressure 116/75 118/76 Pulse Oximetry 92 L 94 L 92 L 02/14/18 12:48 02/14/18 13:37 02/14/18 13:44 Temperature 98.7 F Pulse Rate 97 H 98 H Respiratory Rate 18 19 Blood Pressure 118/80 Pulse Oximetry 92 L 95 02/14/18 13:48 02/14/18 16:00 02/14/18 19:35 Temperature 97.8 F Pulse Rate 89 90 95 H Respiratory Rate 19 20 20 Blood Pressure 111/72 104/68 Pulse Oximetry 92 L 95 93 L 02/14/18 20:00 02/15/18 00:00 02/15/18 03:33 Temperature 96.9 F L 96.4 F L Pulse Rate 92 H 90 Respiratory Rate 18 18 18 Blood Pressure 107/80 119/80 Pulse Oximetry 93 L 95 02/15/18 07:33 02/15/18 08:00 02/15/18 08:16 Temperature Pulse Rate 91 H 88 Respiratory Rate 18 20 Blood Pressure 122/79 Pulse Oximetry 96 95 92 L Intake & Output 02/14/18 02/15/18 02/15/18 18:59 06:59 18:59 Intake Total 2480 / 2480 1585 / 1585 740 / 740 Output Total 300 / 300 200 / 200 Balance 2180 / 2180 1585 / 1585 540 / 540 Weight 58.4 kg Intake: IV 1999 / 1999 1100 / 1100 500 / 500 NS Inj 1,000 ML @ 100 mls/hr IV 1999 / 1999 1000 / 1000 500 / 500 .CONT .Q10H EYAD Rx#:[id number] Rocephin Inj 1,000 MG In NS Inj 100 / 100 100 ML @ 200 mls/hr IV.SIG Q24H EYAD Rx#:[id number] Oral 480 / 480 485 / 485 Tube Feeding 240 / 240 Output: Urine 300 / 300 200 / 200 Other: # Voids 2 Date of Last Bowel Movement 02/14/18 # Bowel Movements 2 Narrative: GENERAL: Well-developed, cachectic, in no acute distress. alert and orientated HEENT: Head is normocephalic without any lesions or masses noted. Facial features are symmetric. Bitemporal wasting. Eyes: Extraocular muscles are intact. Conjunctivae were clear. NECK: Supple without any masses. Trachea midline no deviation. No JVD, CARDIAC: Regular rhythm, regular rate. S1/S2 are heard. No murmurs gallops or rubs. LUNGS: Diminished breath sounds noted throughout. No wheeze, rhonchi or rales. No use of accessory muscles on inspiration or expiration. ABDOMEN: Soft, nontender. Nondistended. Bowel sounds heard in all 4 quadrants. No organomegaly or masses. Negative rebound, negative guarding EXTREMITIES: No edema, pulses are equal bilaterally. No cyanosis or clubbing NEUROLOGY: Mood and affect appear appropriate. Cranial nerves II through XII grossly intact. Moving all extremities, speech is clear Results - Labs CBC & Chem 7: 02/15/18 04:55 02/15/18 04:55 Laboratory Results - last 24 hr 02/14/18 02/14/18 02/15/18 11:45 11:45 04:55 CBC w Diff WBC RBC Hgb Hct MCV MCH MCHC RDW Plt Count MPV Neut % (Auto) Lymph % (Auto) [place] % (Auto) Eos % (Auto) Baso % (Auto) Neut # (Auto) Lymph # (Auto) [place] # (Auto) Eos # (Auto) Baso # (Auto) WBC Differential Differential Comment Sodium 139 Potassium 4.7 Chloride 106 Carbon Dioxide 24.7 Anion Gap 8 BUN 12 Creatinine 0.66 Estimated GFR Greater than 89 Random Glucose 94 Calcium 7.6 L Pleural RBC 160 H Pleural Nuc Cells 53 H Pleural Neutrophils 65 Pleural Lymphocytes 18 Pleural Monocytes 15 Pleural Histocytes 2 Pleural Total Protein 0.5 Pleural LDH 42 Pleural Glucose 99 Pleural Amylase 15 02/15/18 04:55 CBC w Diff Auto diff final WBC 13.3 H RBC 4.54 Hgb 13.5 Hct 41.0 MCV 90.4 MCH 29.8 MCHC 33.0 RDW 15.3 Plt Count 569 H MPV 7.8 Neut % (Auto) 80.6 H Lymph % (Auto) 4.1 L [place] % (Auto) 8.1 H Eos % (Auto) 3.7 Baso % (Auto) 3.5 H Neut # (Auto) 10.7 H Lymph # (Auto) 0.5 L [place] # (Auto) 1.1 H Eos # (Auto) 0.5 H Baso # (Auto) 0.5 H WBC Differential . Differential Comment . Sodium Potassium Chloride Carbon Dioxide Anion Gap BUN Creatinine Estimated GFR Random Glucose Calcium Pleural RBC Pleural Nuc Cells Pleural Neutrophils Pleural Lymphocytes Pleural Monocytes Pleural Histocytes Pleural Total Protein Pleural LDH Pleural Glucose Pleural Amylase - Imaging Impressions Chest X-Ray 02/14/18 00:00 CONCLUSION: Status post right thoracentesis. No evidence of pneumothorax. Thoracentesis Ultrasound 02/14/18 00:00 CONCLUSION: 1. Status post successful right-sided thoracentesis. Assessment and Plan - Assessment (1) Mass of right lung Code(s): R91.8 - Other nonspecific abnormal finding of lung field Status: Acute (2) Pneumonia of right lower lobe due to infectious organism Code(s): J18.1 - Lobar pneumonia, unspecified organism Status: Acute (3) Pleural effusion on right Code(s): J90 - Pleural effusion, not elsewhere classified Status: Acute - Plan Right lung mass with large pleural effusion -High suspicion for cancer/malignancy, secondary to pleural effusion, lung mass , tobacco use, weight loss, -Thoracentesis was performed with 2 L of fluid removal. Testing thus far indicating transudate of fluid, continue to follow cultures, pathology -Oncology has been consulted, oncology recommending pulmonary consult for bronchoscopy as well as MRI to rule out any metastasis -Given the location of the mass, bronchoscopy might not be appropriate evaluation Pneumonia of the right lung -Continue antibiotics consistent with community acquired pneumonia to include Rocephin and Zithromax -Obtain sputum culture -Duo nebs -Mucinex Dizziness, resolved -CT scan of the brain did not indicate any acute abnormality -Continue meclizine History of cirrhosis, chronic pancreatitis -Continue home medications Chronic obstructive pulmonary disease -Continue O2 supplementation maintain O2 sats greater than 92% -Continue duo nebs DVT prevention -Sequential compression devices, avoid chemical prophylaxis at this time secondary to impending procedures
--- NOTE | 2018-02-15 13:14 | MR ---
EXAM DATE: 02/15/2018 1:07 PM EDT AGE/SEX: 57 years / Male INDICATIONS: Cephalgia. CLINICAL DATA: This is the patient's initial encounter. Patient reports that signs and symptoms have been present for 2 weeks and indicates a pain score of 4/10. MEDICAL/SURGICAL HISTORY: Cirrhosis. Pancreatitis. Cholecystectomy. Inguinal hernia repair. COMPARISON: [facility], CT HEAD W/O CONTRAST, 02/13/2018. . TECHNIQUE: Multiplanar, multisequence examination of the brain was performed without and with 7 ml Ga davist (gadobutrol) contrast as a single exam dose. FINDINGS: Cerebrum: Right frontal encephalomalacia with underlying gliosis is noted. There are no characterist ic findings of acute infarct or hemorrhage. A small 5 mm cavernoma is identified in the left parietal deep white matter adjacent to the ventricle. White Matter: Scattered T2 hyperintensities are seen throughout the cerebral white matter especially in the posterior watershed zones. Posterior Fossa: The cerebellum and brainstem are intact. The 4th ventricle is midline. The cerebel lopontine angle is unremarkable. The cerebellar tonsils are normal in position. Diffusion Imaging: No focal areas of restricted diffusion are seen. No evidence of acute infarction . Extracranial: The visualized portions of the orbits and paranasal sinuses are unremarkable. Post Contrast: No abnormal areas of parenchymal or dural enhancement. No evidence of blood-brain ba rrier breakdown. CONCLUSION: 1. 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 2. 5 mm left parietal cavernoma 3. No evidence of acute infarct, hemorrhage, mass or enhancing lesions. Electronically signed by: Justin Hernandez MD 02/15/2018 1:13 PM EDT
--- NOTE | 2018-02-15 13:23 | MR ---
EXAM DATE: 02/15/2018 1:15 PM EDT AGE/SEX: 57 years / Male INDICATIONS: Pain. Tingling in extremities. CLINICAL DATA: This is the patient's initial encounter. Patient reports that signs and symptoms have been present for 3 weeks and indicates a pain score of 5/10. MEDICAL/SURGICAL HISTORY: Cirrhosis. Pancreatitis. Cholecystectomy. Inguinal hernia repair. COMPARISON: No prior exams available for comparison. TECHNIQUE: Multiplanar, multisequence MRI examination of the cervical spine was performed without an d with 7 ml Gadavist (gadobutrol) contrast as a single exam dose. FINDINGS: Vertebrae: Reversal of the normal cervical lordosis. Picture frame marrow replacement of C3 with int ense enhancement suspicious for a neoplastic process. Alignment: Normal. Cord: Normal configuration and signal. Post Fossa: The cerebellar tonsils are normal in position. Post Contrast: No abnormal areas of enhancement are seen. C2-C3: The thecal sac has a normal configuration. There is no evidence of disc herniation or spinal canal stenosis. The neural foramina are patent bilaterally. C3-C4: Anterior listhesis of C3 on C4 with moderate spinal stenosis and bilateral neural foraminal e ncroachment. C4-C5: Marked loss of disc space height uncinate uncinate ridging and bilateral neural foraminal enc roachment. Spinal stenosis is mild. C5-C6: Marked loss of disc space height and moderate spinal stenosis and moderate bilateral neural f oraminal encroachment. C6-C7: Marked loss of disc space height with mild spinal stenosis and bilateral neural foraminal enc roachment much worse on the left than the right. C7-T1: No epidural impressions seen. CONCLUSION: 1. Abnormal marrow in C3 suspicious for metastatic disease. 2. CT scan of the chest head raises suspicion of a lung primary 3. Reversal normal cervical lordosis with degenerative changes and moderate spinal stenosis at C5-C6 . Electronically signed by: Isac Dela Cruz MD 02/15/2018 1:21 PM EDT
[2018-02-15] MEDS ORDERED: Gadobutrol PF 7.5 MMOL/7.5 ML Vial (for RAD) IV.SIG ONE (16:59)
--- NOTE | 2018-02-15 18:23 | P.PNONC ---
Subjective Interval history: Headache improved. 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 The option of bronchoscopy was discussed if cytology was nondiagnostic. Objective Vital Signs/Intake & Output: Vital Signs 02/14/18 19:35 02/14/18 20:00 02/15/18 00:00 Temperature 96.9 F L 96.4 F L Pulse Rate 95 H 92 H 90 Respiratory Rate 20 18 18 Blood Pressure 107/80 119/80 Pulse Oximetry 93 L 93 L 95 02/15/18 03:33 02/15/18 07:33 02/15/18 08:00 Temperature Pulse Rate 91 H 88 Respiratory Rate 18 18 20 Blood Pressure 122/79 Pulse Oximetry 96 95 02/15/18 08:16 02/15/18 12:00 02/15/18 13:21 Temperature 97.8 F Pulse Rate 95 H 95 H Respiratory Rate 18 20 Blood Pressure 127/89 Pulse Oximetry 92 L 95 02/15/18 16:00 Temperature 97.8 F Pulse Rate 94 H Respiratory Rate 19 Blood Pressure 120/72 Pulse Oximetry 95 Intake & Output 02/14/18 02/15/18 02/15/18 18:59 06:59 18:59 Intake Total 2480 / 2480 1585 / 1585 1460 / 1460 Output Total 300 / 300 901 / 901 Balance 2180 / 2180 1585 / 1585 559 / 559 Weight 58.4 kg Intake: IV 2000 / 1999 1100 / 1100 500 / 500 NS Inj 1,000 ML @ 100 mls/hr IV 2000 / 2000 1000 / 1000 500 / 500 .CONT .Q10H [facility] Rx#:[id number] Rocephin Inj 1,000 MG In NS Inj 100 / 100 100 ML @ 200 mls/hr IV.SIG Q24H [facility] Rx#:[id number] Oral 480 / 480 485 / 485 720 / 720 Tube Feeding 240 / 240 Output: Urine 300 / 300 900 / 900 Stool / Other: # Voids 2 Date of Last Bowel Movement 02/14/18 02/15/18 # Bowel Movements 2 Result Diagrams: 02/15/18 04:55 02/15/18 04:55 Laboratory Results: Laboratory Results - last 24 hr 02/15/18 02/15/18 04:55 04:55 CBC w Diff Auto diff final WBC 13.3 H RBC 4.54 Hgb 13.5 Hct 41.0 MCV 90.4 MCH 29.8 MCHC 33.0 RDW 15.3 Plt Count 569 H MPV 7.8 Neut % (Auto) 80.6 H Lymph % (Auto) 4.1 L [place] % (Auto) 8.1 H Eos % (Auto) 3.7 Baso % (Auto) 3.5 H Neut # (Auto) 10.7 H Lymph # (Auto) 0.5 L [place] # (Auto) 1.1 H Eos # (Auto) 0.5 H Baso # (Auto) 0.5 H WBC Differential . Differential Comment . Sodium 139 Potassium 4.7 Chloride 106 Carbon Dioxide 24.7 Anion Gap 8 BUN 12 Creatinine 0.66 Estimated GFR Greater than 89 Random Glucose 94 Calcium 7.6 L Culture Results: Microbiology 02/14/18 11:45 Acid Fast Bacilli Smear - Final Fluid - Pleural fluid No acid fast bacilli seen 02/14/18 14:25 Gram Stain - Final Fluid - Pleural fluid Body Fluid Culture - Preliminary No growth in 24 hours 02/14/18 11:45 Fungal Smear - Final Fluid - Pleural fluid No fungal elements seen Imaging Studies: Impressions Cervical Spine MRI 02/15/18 00:00 CONCLUSION: 1. Abnormal marrow in C3 suspicious for metastatic disease. 2. CT scan of the chest head raises suspicion of a lung primary 3. Reversal normal cervical lordosis with degenerative changes and moderate spinal stenosis at C5-C6. Head MRI 02/15/18 00:00 CONCLUSION: 1. 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 2. 5 mm left parietal cavernoma 3. No evidence of acute infarct, hemorrhage, mass or enhancing lesions. Medications: Active Medications Generic Name Dose Route Start Last Admin Trade Name Freq PRN Reason Stop Dose Admin Acetaminophen 650 mg 02/13/18 22:21 02/15/18 17:44 Tylenol PO 650 mg Q4H PRN Administration HEADACHE OR TEMP > 101 F Albuterol 1 ampul 02/14/18 14:00 02/15/18 13:20 Duoneb Neb (Kulwinder) NEB 1 ampul Q6HR WHILE AWAKE NEB KULWINDER Administration Lipase/Protease/Amylase 1 cap 02/14/18 13:00 02/15/18 17:[address] 24/76/120 PO 1 cap TID KULWINDER Administration Benzonatate 100 mg 02/14/18 03:40 02/14/18 03:50 Tessalon Perles PO 100 mg Q8H PRN Administration COUGH Furosemide 20 mg 02/14/18 09:00 02/15/18 09:33 Lasix PO 20 mg BID KULWINDER Administration Guaifenesin 600 mg 02/14/18 09:00 02/15/18 09:33 Mucinex Er PO 600 mg BID KULWINDER Administration Azithromycin 500 mg/ Sodium 250 mls @ 250 mls/hr 02/14/18 23:00 02/15/18 06: 53 Chloride IV.SIG 0 mls/hr Q24H KULWINDER Infusion Ceftriaxone Sodium 1,000 mg/ 100 mls @ 200 mls/hr 02/14/18 22:00 02/15/18 06: 51 Sodium Chloride IV.SIG Infused Q24H KULWINDER Infusion Meclizine HCl 25 mg 02/14/18 14:00 02/15/18 13:13 Antivert PO 25 mg Q8HR KULWINDER Administration Senna/Docusate Sodium 1 tab 02/14/18 09:00 02/15/18 09:33 Sangeeta-Colace PO Not Given BID KULWINDER Sodium Chloride 2 ml 02/13/18 17:52 02/13/18 18:21 Ns Flush IV.FLUSH 2 ml PRN PRN Administration FLUSH AFTER USING IV ACCESS Spironolactone 25 mg 02/14/18 09:00 02/15/18 09:33 Aldactone PO 25 mg BID KULWINDER Administration Zolpidem Tartrate 5 mg 02/13/18 22:18 02/14/18 21:38 Ambien PO 5 mg HS PRN Administration SLEEP Objective Remarks: GENERAL: Cachectic appearing man who looks older than stated age, well- developed patient. SKIN: Warm and dry. HEAD: Normocephalic. Bitemporal wasting. EYES: No scleral icterus. No injection or drainage. NECK: Supple, trachea midline. No JVD or lymphadenopathy. LYMPHATIC: No adenopathy. CARDIOVASCULAR: Regular rate and rhythm without murmurs. RESPIRATORY: Breath sounds equal bilaterally. No accessory muscle use. GASTROINTESTINAL: Abdomen soft, non-tender, nondistended. EXTREMITIES: No cyanosis, or edema. MUSCULOSKELETAL: Adequate muscle tone. NEUROLOGICAL: No obvious focal deficit. Awake, alert, and oriented x3. PSYCHIATRIC: Appropriate mood and affect; insight and judgment normal. Assessment/Plan (1) Pleural effusion on right Code(s): J90 - Pleural effusion, not elsewhere classified Status: Acute - Plan 57-year-old man with long history of tobacco use. He presents with the right- sided pleural effusion. Status post thoracentesis. There is a hilar mass noted concerning for bronchogenic carcinoma. Digital Strategy Manager was consulted. We discussed the case. It appears that the CT scan does not reveal an endobronchial lesion. The right mainstem appears to be narrowed probably due to inflammation. The right hilar lesion would not be accessible to bronchoscopic biopsy. Cytology from the pleural effusion is pending. We discussed evaluation for his headache. CT scan of the head was negative. MRI of the brain was negative for [employer] metastatic disease. During the MRI evaluation radiology called because of a cervical abnormality. Cervical spine MRI shows a lesion at C3. Case was discussed with radiology. We considered the option of biopsying C3 versus further imaging of the thoracic or lumbar spine for a safer lesion to biopsy. We will discuss with interventional radiologist when they become available tomorrow. 1. Biopsies C3 lesion versus another 4 diagnosis 2. Pleural fluid cytology pending 3. Further recommendation pending on the pathology. 4. Patient will need follow-up in outpatient at [facility].
--- NOTE | 2018-02-15 19:12 | MB ---
cc: Adam Mulligan MD DATE: 02/15/2018 DATE OF CONSULTATION: 02/15/2018 REQUESTING PHYSICIAN: Dr. Calderon. REASON FOR EVALUATION: Lung density. HISTORY OF PRESENT ILLNESS: Mr. Shannon is a 57-year-old male with longstanding history of smoking for the last 30 years or so, about half pack a day. He has unintentional weight loss, 5-10 pound weight. He also has some sort of liver and pancreas problems, but was following with Dr. Juan A Mack for the last 2 years, but he lost insurance, did not go to followup with him. He came to the hospital complaining of headache for 2 weeks and has dizziness for 1 day or so. No nausea or vomiting. The patient had a workup done in the hospital. He had a CT scan of the head done, which shows no acute hemorrhage or mass. He had a CTA of the chest did not show any pulmonary embolism. It shows large pleural effusion and right hilar mass with narrowing of the right pulmonary artery and proximal branch. PAST MEDICAL HISTORY: Liver and gallbladder problem, cholecystectomy, history of COPD. MEDICATIONS: 1. He is currently taking a nebulizer treatment with DuoNeb. 2. Creon 1 capsule 3 times a day. 3. Zithromax 500 mg a day. 4. Tessalon 100 mg every 8 hours. 5. Rocephin 1 g a day. 6. Lasix 20 mg twice a day. 7. Mucinex 600 mg twice a day. 8. Lactulose 30 mL p.r.n. 9. Zofran p.r.n. 10. Spironolactone 25 mg. 11. Ambien 5 mg at nighttime. ALLERGIES: NO KNOWN DRUG ALLERGIES. 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 Denies any drug use. FAMILY HISTORY: Lives with his fiancee. He has 1 grown child. REVIEW OF SYSTEMS: He has lost 5-10 pounds of weight recently, which is unintentional. He is not sure if he has lost weight on a long-term basis. No history of hemoptysis. No DVT of pneumonia. No seizure, stroke or epilepsy. PHYSICAL EXAMINATION: GENERAL: Thin built male, mild discomfort, not in acute distress. VITAL SIGNS: Blood pressure 120/72, heart rate 94, respirations 18, temperature 97.8. HEENT: Pupils are equal and reactive to light. Oral mucosa and nasal mucosa normal. NECK: Supple. JVP not raised. CHEST: He has decreased breath sounds on the right side. HEART: S1, S2 normal. ABDOMEN: Benign. EXTREMITIES: No edema. IMPRESSION: 1. Right pleural effusion, status post thoracentesis. 2. Right hilar mass. 3. Chronic obstructive pulmonary disease. 4. Weight loss. 5. Nicotine use. PLAN: I discussed with patient. We will check his pulmonary function study. I will check the pleural fluid for cytology. If negative, he will need bronchoscopy. Continue antibiotic aerosol treatment. Advised him to quit smoking. Further treatment pending the course in the hospital. MD NORIS Ruiz/smita , 05:41 PM , 05:51 PM
[2018-02-15] MEDS: Zolpidem Tartrate 5 MG Tablet PO PRN (22:12)
[2018-02-16] MEDS: Acetaminophen 325 MG Tablet PO PRN ×3 (02:35→10:28)
[2018-02-16] MEDS: Lipase/Protease/Amylase 24/76/120 DR Capsule PO SCH ×3 (09:46→17:29)
[2018-02-16] MEDS: Spironolactone 25 MG Tablet PO SCH ×2 (09:47→20:08)
[2018-02-16] MEDS: guaiFENesin 600 MG ER Tablet PO SCH ×2 (09:47→20:07)
[2018-02-16] MEDS: Senna/Docusate Sodium 8.6/50 MG Tablet PO SCH ×2 (09:47→20:08)
[2018-02-16] MEDS: Furosemide 20 MG Tablet PO SCH ×2 (09:47→20:08)
[2018-02-16] MEDS ORDERED: Gadobutrol PF 2 MMOL/2 ML Vial (for RAD) IV.SIG ONE (12:00)
--- NOTE | 2018-02-16 12:00 | MR ---
EXAM DATE: 02/16/2018 11:48 AM EDT AGE/SEX: 57 years / Male INDICATIONS: Metastatic disease. CLINICAL DATA: This is the patient's subsequent encounter. Patient reports that signs and symptoms h ave been present for 3 days and indicates a pain score of 5/10. MEDICAL/SURGICAL HISTORY: Cirrhosis. Pancreatitis. Chronic obstructive pulmonary disease. Ca rotid artery stenosis. Cholecystectomy. Inguinal hernia repair. COMPARISON: [facility], MR CERVICAL SPINE W & W/O CON, 02/15/2018. . TECHNIQUE: Multiplanar, multisequence MRI examination of the lumbar spine was performed without and with 5.5 ml Gadavist (gadobutrol) contrast as a single exam dose. FINDINGS: ALIGNMENT: Vertebral bodies are satisfactorily aligned without evidence of listhesis. FACET AND OSSEOUS STRUCTURES: Discrete intraosseous lesions are identified in the T12 and L4 vertebr al bodies. The T12 lesion is located predominantly on the right side of vertebral body and extends in to the right pedicle. The right pedicle is expanded. Enhancement of both lesions is noted following t he administration of contrast. There is no evidence of pathologic compression fracture. INTERVERTEBRAL DISC SPACES: Aozl-ac-kfofxrgn degenerative disc disease is noted of L3-4, L4-5 and L5- S1. Mild posterior disc osteophyte complex at L3-4 and L4-5 is causing mild epidural effacement but n o significant spinal stenosis. Intervertebral disc are otherwise well-maintained without evidence of significant degenerative guzmán e. There is no evidence of disc herniation. NEUROLOGIC STRUCTURES: No evidence of epidural or intradural lesions. There is no evidence of nerve r oot compression. CONCLUSION: 1. Enhancing intraosseous lesions within the T12 and L4 vertebral bodies characteristic of metastati c disease. 2. No evidence of pathologic compression fracture. 3. Mild to moderate degenerative disc disease as described. 4. No evidence of epidural or intradural enhancing masses. Electronically signed by: Justin Hernandez MD 02/16/2018 11:58 AM EDT
--- NOTE | 2018-02-16 12:25 | MR ---
EXAM DATE: 02/16/2018 12:08 PM EDT AGE/SEX: 57 years / Male INDICATIONS: Metastatic disease. CLINICAL DATA: This is the patient's subsequent encounter. Patient reports that signs and symptoms h ave been present for 3 days and indicates a pain score of 5/10. MEDICAL/SURGICAL HISTORY: Cirrhosis. Chronic obstructive pulmonary disease. Pancreatitis. Ca rotid artery stenosis. Cholecystectomy. Inguinal hernia repair. COMPARISON: [facility], MR CERVICAL SPINE W & W/O CON, 02/15/2018. [facility], MR LUMBAR SPINE W & W/O CONTRAS T, 02/16/2018. . TECHNIQUE: Multiplanar, multisequence MRI of the thoracic spine was performed without and with 5.5 m l Gadavist (gadobutrol) contrast as a single exam dose. FINDINGS: Alignment is normal. There are abnormal lesions of decreased T1 signal and avid enhancement within the T10 and T12 vertebral bodies as well as the posterior elements of T9 on the right. There is a lesion also seen involving T6 on the left which demonstrates enhancement. The findings are david cteristic of metastatic disease. There are scattered Schmorl nodes noted, nonacute. There is abnormal enhancement and signal in the left T8 transverse process also identified. The spinal cord is normal. There is diffuse disc desiccation and mild disc space. Large right pleural effusion. T1-T2: The thecal sac has a normal diameter. No evidence of disc bulge or protrusion. T2-T3: The thecal sac has a normal diameter. No evidence of disc bulge or protrusion. T3-T4: The thecal sac has a normal diameter. No evidence of disc bulge or protrusion. T4-T5: The thecal sac has a normal diameter. No evidence of disc bulge or protrusion. T5-T6: The thecal sac has a normal diameter. No evidence of disc bulge or protrusion. T6-T7: The thecal sac has a normal diameter. No evidence of disc bulge or protrusion. T7-T8: The thecal sac has a normal diameter. No evidence of disc bulge or protrusion. T8-T9: The thecal sac has a normal diameter. No evidence of disc bulge or protrusion. T9-T10: Mild left central protrusion without canal or foraminal narrowing. T10-T11: The thecal sac has a normal diameter. No evidence of disc bulge or protrusion. T11-T12: The thecal sac has a normal diameter. No evidence of disc bulge or protrusion. T12-L1: The thecal sac has a normal diameter. No evidence of disc bulge or protrusion. CONCLUSION: 1. 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 Electronically signed by: Julius Healy MD 02/16/2018 12:24 PM EDT
--- NOTE | 2018-02-16 14:56 | P.PN ---
Subjective Interval history: 57-year-old male who is seen and examined today for follow-up pleural effusion, lung mass. Peripheral patient states that he has a severe headache today. Denies any respiratory issues. Vital signs are stable, patient remains afebrile Physical Exam Vital signs: Vital Signs 02/15/18 16:00 02/15/18 19:30 02/15/18 20:00 Temperature 97.8 F 96.9 F L Pulse Rate 94 H 87 90 Respiratory Rate 19 20 18 Blood Pressure 120/72 116/82 Pulse Oximetry 95 95 95 02/16/18 00:00 02/16/18 08:00 02/16/18 09:03 Temperature 96.8 F L 96.9 F L Pulse Rate 88 82 Respiratory Rate 18 16 20 Blood Pressure 106/70 118/84 Pulse Oximetry 94 L 92 L 02/16/18 13:37 Temperature Pulse Rate 93 H Respiratory Rate 18 Blood Pressure Pulse Oximetry Intake & Output 02/15/18 02/16/18 02/16/18 18:59 06:59 18:59 Intake Total 1460 / 1460 600 / 600 Output Total 901 / 901 300 / 300 Balance 559 / 559 300 / 300 Weight 58.4 kg Intake: IV 500 / 500 600 / 600 NS Inj 1,000 ML @ 100 mls/hr IV 500 / 500 .CONT .Q10H EYAD Rx#:[id number] Azithromycin Inj 500 MG In NS 500 / 500 Inj 250 ML @ 250 mls/hr IV.SIG Q24H EYAD Rx#:[id number] Rocephin Inj 1,000 MG In NS Inj 100 / 100 100 ML @ 200 mls/hr IV.SIG Q24H EYAD Rx#:[id number] Oral 720 / 720 Tube Feeding 240 / 240 Output: Urine 900 / 900 300 / 300 Stool / Other: Date of Last Bowel Movement 02/15/18 02/15/18 02/15/18 Narrative: GENERAL: Well-developed, cachectic, in no acute distress. alert and orientated HEENT: Head is normocephalic without any lesions or masses noted. Facial features are symmetric. Bitemporal wasting. Eyes: Extraocular muscles are intact. Conjunctivae were clear. NECK: Supple without any masses. Trachea midline no deviation. No JVD, CARDIAC: Regular rhythm, regular rate. S1/S2 are heard. No murmurs gallops or rubs. LUNGS: Diminished breath sounds noted throughout. No wheeze, rhonchi or rales. No use of accessory muscles on inspiration or expiration. ABDOMEN: Soft, nontender. Nondistended. Bowel sounds heard in all 4 quadrants. No organomegaly or masses. Negative rebound, negative guarding EXTREMITIES: No edema, pulses are equal bilaterally. No cyanosis or clubbing NEUROLOGY: Mood and affect appear appropriate. Cranial nerves II through XII grossly intact. Moving all extremities, speech is clear Results - Labs CBC & Chem 7: 02/15/18 04:55 02/15/18 04:55 Microbiology 02/15/18 10:00 Sputum - Expectorated Sputum Gram Stain - Final 02/15/18 10:00 Sputum - Expectorated Sputum Sputum Culture - Preliminary Heavy growth normal respiratory jose luis at 24 hours 02/14/18 14:25 Fluid - Pleural fluid Gram Stain - Final 02/14/18 14:25 Fluid - Pleural fluid Body Fluid Culture - Preliminary No growth in 48 hours 02/14/18 11:45 Fluid - Pleural fluid Acid Fast Bacilli Smear - Final No acid fast bacilli seen 02/14/18 11:45 Fluid - Pleural fluid Fungal Smear - Final No fungal elements seen - Imaging Impressions Lumbar Spine MRI 02/16/18 00:00 CONCLUSION: 1. Enhancing intraosseous lesions within the T12 and L4 vertebral bodies characteristic of metastatic disease. 2. No evidence of pathologic compression fracture. 3. Mild to moderate degenerative disc disease as described. 4. No evidence of epidural or intradural enhancing masses. Thoracic Spine MRI 02/16/18 00:00 CONCLUSION: 1. 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 Assessment and Plan - Assessment (1) Mass of right lung Code(s): R91.8 - Other nonspecific abnormal finding of lung field Status: Acute (2) Pneumonia of right lower lobe due to infectious organism Code(s): J18.1 - Lobar pneumonia, unspecified organism Status: Acute (3) Pleural effusion on right Code(s): J90 - Pleural effusion, not elsewhere classified Status: Acute - Plan Right lung mass with large pleural effusion -High suspicion for cancer/malignancy, secondary to pleural effusion, lung mass , tobacco use, weight loss, -Thoracentesis was performed with 2 L of fluid removal. Testing thus far indicating transudate of fluid, continue to follow cultures, pathology -Oncology has been consulted, oncology recommending pulmonary consult for bronchoscopy as well as MRI to rule out any metastasis -Cytology of pleural fluid indicates numerous malignant cells. Favor adenocarcinoma -MRI of the brain did not indicate any metastasis -MRI of the thoracic and lumbar spine shows multiple areas within the vertebrae which is characteristic of metastatic disease -Discussed with Dr. Miranda, she indicates that would need to get a biopsy of 1 of the lesions in his spine. Once that is complete patient can be discharged with outpatient follow-up Pneumonia of the right lung -Continue antibiotics consistent with community acquired pneumonia to include Rocephin and Zithromax -Sputum culture with heavy growth normal jose luis -Duo nebs -Mucinex Dizziness, resolved -CT scan of the brain did not indicate any acute abnormality -Continue meclizine History of cirrhosis, chronic pancreatitis -Continue home medications Chronic obstructive pulmonary disease -Continue O2 supplementation maintain O2 sats greater than 92% -Continue duo nebs DVT prevention -Sequential compression devices, avoid chemical prophylaxis at this time secondary to impending procedures
--- NOTE | 2018-02-16 19:20 | P.PN ---
Subjective Interval history: Had Thoracentesis done on Right and >1 L fluid removed . Now breathing better. OnO2 2 L. C/O Cough and some SOB Physical Exam Vital signs: Vital Signs 02/15/18 19:30 02/15/18 20:00 02/16/18 00:00 Temperature 96.9 F L 96.8 F L Pulse Rate 87 90 88 Respiratory Rate 20 18 18 Blood Pressure 116/82 106/70 Pulse Oximetry 95 95 94 L 02/16/18 08:00 02/16/18 09:03 02/16/18 13:37 Temperature 96.9 F L Pulse Rate 82 93 H Respiratory Rate 16 20 18 Blood Pressure 118/84 Pulse Oximetry 92 L 02/16/18 15:48 02/16/18 16:00 Temperature 97.2 F L Pulse Rate 98 H Respiratory Rate 20 18 Blood Pressure 124/83 Pulse Oximetry 93 L Intake & Output 02/16/18 02/16/18 02/17/18 06:59 18:59 06:59 Intake Total 600 / 600 Output Total 300 / 300 Balance 300 / 300 Weight 58.4 kg Intake: IV 600 / 600 Azithromycin Inj 500 MG In NS 500 / 500 Inj 250 ML @ 250 mls/hr IV.SIG Q24H EYAD Rx#:[id number] Rocephin Inj 1,000 MG In NS Inj 100 / 100 100 ML @ 200 mls/hr IV.SIG Q24H EYAD Rx#:[id number] Output: Urine 300 / 300 Other: Date of Last Bowel Movement 02/15/18 02/15/18 Narrative: GENERAL:Mid aged , cachectic, W/M in no acute distress. alert and orientated HEENT: Head is normocephalic without any lesions or masses noted. Facial features are symmetric. Bitemporal wasting. Eyes: Extraocular muscles are intact. Conjunctivae were clear. NECK: Supple without any masses. Trachea midline no deviation. No JVD, CARDIAC: Regular rhythm, regular rate. S1/S2 are heard. No murmurs gallops or rubs. LUNGS: Diminished breath sounds noted throughout. Occ wheeze, and no rales. No use of accessory muscles on inspiration or expiration. ABDOMEN: Soft, nontender. Nondistended. Bowel sounds heard in all 4 quadrants. No organomegaly or masses. Negative rebound, negative guarding EXTREMITIES: No edema, pulses are equal bilaterally. No cyanosis or clubbing NEUROLOGY: Mood and affect appear appropriate. Cranial nerves II through XII grossly intact. Moving all extremities, speech is clear Results - Labs CBC & Chem 7: 02/15/18 04:55 02/15/18 04:55 Microbiology 02/15/18 10:00 Sputum - Expectorated Sputum Gram Stain - Final 02/15/18 10:00 Sputum - Expectorated Sputum Sputum Culture - Preliminary Heavy growth normal respiratory jose luis at 24 hours 02/14/18 14:25 Fluid - Pleural fluid Gram Stain - Final 02/14/18 14:25 Fluid - Pleural fluid Body Fluid Culture - Preliminary No growth in 48 hours 02/14/18 11:45 Fluid - Pleural fluid Acid Fast Bacilli Smear - Final No acid fast bacilli seen - Imaging Impressions Lumbar Spine MRI 02/16/18 00:00 CONCLUSION: 1. Enhancing intraosseous lesions within the T12 and L4 vertebral bodies characteristic of metastatic disease. 2. No evidence of pathologic compression fracture. 3. Mild to moderate degenerative disc disease as described. 4. No evidence of epidural or intradural enhancing masses. Thoracic Spine MRI 02/16/18 00:00 CONCLUSION: 1. 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 Assessment and Plan - Assessment (1) COPD (chronic obstructive pulmonary disease) with emphysema Code(s): J43.9 - Emphysema, unspecified Status: Acute (2) Pneumonia of right lower lobe due to infectious organism Code(s): J18.1 - Lobar pneumonia, unspecified organism Status: Acute (3) Pleural effusion on right Code(s): J90 - Pleural effusion, not elsewhere classified Status: Acute (4) Dizziness Code(s): R42 - Dizziness and giddiness Status: Acute (5) Mass of right lung Code(s): R91.8 - Other nonspecific abnormal finding of lung field Status: Acute - Plan 1. Will continue antibiotics ,Rocephin and zithro 2.Duoneb nebs qid. 3. PFT at Bedside 4. Continue solumedrol 40 mg IV Q8H 5. Await Pleural fluid results
[2018-02-16] MEDS: MethylPREDNISolone Sod Succinate Inj 40 MG/ML Vial IV.PUSH SCH (21:57)
[2018-02-16] MEDS: Zolpidem Tartrate 5 MG Tablet PO PRN (21:58)
[2018-02-16] MEDS: Azithromycin Inj 500 MG in Sodium Chlor 0.9% Inj 250 ML IV.SIG SCH (22:01)
[2018-02-17] MEDS: MethylPREDNISolone Sod Succinate Inj 40 MG/ML Vial IV.PUSH SCH (06:13)
[2018-02-17] MEDS: Spironolactone 25 MG Tablet PO SCH (08:26)
[2018-02-17] MEDS: Furosemide 20 MG Tablet PO SCH (08:27)
[2018-02-17] MEDS: guaiFENesin 600 MG ER Tablet PO SCH (08:27)
[2018-02-17] MEDS: Senna/Docusate Sodium 8.6/50 MG Tablet PO SCH (08:27)
[2018-02-17] MEDS: Lipase/Protease/Amylase 24/76/120 DR Capsule PO SCH ×2 (08:27→12:37)
--- NOTE | 2018-02-17 12:46 | P.DS ---
Date of admission: 02/15/18 14:33 Primary care physician: Clifton Red MD Attending physician on discharge: Jorge Hunter Anticipated date of discharge: 02/17/18 Brief History from admission: 57-year-old male with known history of COPD, cirrhosis of liver who presented to the hospital because of dizziness. Patient states that he was in normal state of health until yesterday when he went to get up and had significant dizziness like the room was spinning. He cannot walk due to disequilibrium. The patient was concerned so he called the paramedics. They did an evaluation on him at his home and indicated that what they did was unremarkable. The indicated that if he was concerned then he should go to the hospital to get evaluated. Patient came into the hospital with dizziness. Patient was given meclizine in the emergency department with significant improvement and resolution of his dizziness. CT the brain did not indicate any acute abnormality. Incidentally the patient had chest x-ray performed which did show pleural effusion and possible consolidation. CTA of the chest was performed which did show significant right-sided pleural effusion with bronchogenic mass. It was recommended by the ER physician of the patient be observed in the hospital for further evaluation. Patient laying in bed comfortable at this time. Appears to be very cachectic, patient does have a 30 year history of smoking. He has had a weight loss over the last week with increased shortness of breath. Patient cannot quantify how much weight he has lost. Patient denies any family history of cancer. Patient denies any history of lung masses or cancer. DS: Diagnosis - Discharge Diagnosis (1) Mass of right lung Status: Acute (2) Pneumonia of right lower lobe due to infectious organism Status: Acute (3) Pleural effusion on right Status: Acute DS: Medications - Discharge Medications Prescriptions: amoxicillin-pot clavulanate 2 tab PO BID 7 Days #28 tab benzonatate [Tessalon Perles] 100 mg PO Q8H PRN #20 cap PRN Reason: Cough guaifenesin [Mucinex] 600 mg PO BID #10 tab meclizine 25 mg PO Q8HR #12 tab oxycodone-acetaminophen 1 tab PO Q6H PRN #12 tab PRN Reason: Acute Pain DS: Summary Hospital Course: 57-year-old male who originally presented the hospital because of dizziness and disequilibrium. The patient came to emergency department for evaluation. Patient did undergo CT of the brain which did not indicate any abnormality. Patient had further workup performed with incidental findings on a chest x-ray that showed pleural effusion and follow-up CTA which did show significant right-sided pleural effusion and bronchogenic mass. Patient was requested admission at that time with IV antibiotics to include Rocephin, Zithromax. In light of the bronchogenic mass he was reviewed by oncology and myself and due to the location of the mass would obtain pleural fluid with a diagnostic and therapeutic thoracentesis which was performed with approximately 2 L of fluid removed. Findings were is indicative of transudate material, cytology did indicate numerous cancer cells favoring adenocarcinoma. Without definitive identification of the underlying malignancy. Patient has undergone further studies with MRI of the brain which did not indicate any acute abnormality or metastasis. MRI of the thoracic and lumbar spine was performed which did indicate multiple lesions throughout the spine which are indicative of malignancy. It was recommended by oncology of the patient undergo biopsy of the vertebra for definitive diagnosis. Anticipating outpatient biopsy to be performed. Oncology indicated patient is stable to be discharged with outpatient follow-up. [employer] Supervisor was also consulted for possible bronchoscopy. It was indicated that they would await final interpretation of the pleural fluid cytology and if needed, would pursue bronchoscopy. Clinically the patient is currently stable. He has not had any recurrent lightheadedness or dizziness in which he came in the hospital for MRIs and CT did not indicate any abnormality or malignancy. Patient was counseled extensively on possible findings, malignancy. Notified patient that it is crucial to follow-up with the oncologist upon discharge. We will discharge patient accordingly. - Time Spent with Patient Total time spent providing and/or coordinating discharge services: Greater than 30 minutes - Quality: VTE Deep Vein Thrombosis/Pulmonary Embolism Present on Admission: No Exam Vital signs: Vital Signs 02/16/18 13:37 02/16/18 15:48 02/16/18 16:00 Temperature 97.2 F L Pulse Rate 93 H 98 H Respiratory Rate 18 20 18 Blood Pressure 124/83 Pulse Oximetry 93 L 02/16/18 19:42 02/16/18 20:00 02/17/18 00:00 Temperature 97.3 F L 98.3 F Pulse Rate 98 H 95 H 90 Respiratory Rate 18 18 18 Blood Pressure 137/84 113/69 Pulse Oximetry 94 L 94 L 97 02/17/18 07:13 02/17/18 08:00 02/17/18 12:00 Temperature 97.3 F L 97.6 F Pulse Rate 108 H 94 H 91 H Respiratory Rate 20 19 19 Blood Pressure 124/80 106/73 Pulse Oximetry 93 L 92 L Intake & Output 02/16/18 02/17/18 02/17/18 18:59 06:59 18:59 Intake Total 350 / 350 Balance 350 / 350 Intake: IV 350 / 350 Azithromycin Inj 500 MG In NS 250 / 250 Inj 250 ML @ 250 mls/hr IV.SIG Q24H EYAD Rx#:[id number] Rocephin Inj 1,000 MG In NS Inj 100 / 100 100 ML @ 200 mls/hr IV.SIG Q24H EYAD Rx#:[id number] Other: # Voids 2 Date of Last Bowel Movement 02/15/18 02/16/18 02/16/18 # Bowel Movements 0 Narrative: GENERAL: Well-developed, cachectic, in no acute distress. alert and orientated HEENT: Head is normocephalic without any lesions or masses noted. Facial features are symmetric. Bitemporal wasting. Eyes: Extraocular muscles are intact. Conjunctivae were clear. NECK: Supple without any masses. Trachea midline no deviation. No JVD, CARDIAC: Regular rhythm, regular rate. S1/S2 are heard. No murmurs gallops or rubs. LUNGS: Diminished breath sounds noted throughout. No wheeze, rhonchi or rales. No use of accessory muscles on inspiration or expiration. ABDOMEN: Soft, nontender. Nondistended. Bowel sounds heard in all 4 quadrants. No organomegaly or masses. Negative rebound, negative guarding EXTREMITIES: No edema, pulses are equal bilaterally. No cyanosis or clubbing NEUROLOGY: Mood and affect appear appropriate. Cranial nerves II through XII grossly intact. Moving all extremities, speech is clear Results Procedures completed during hospitalization: PLEURAL FLUID, THORACENTESIS: - NUMEROUS MALIGNANT CELLS PRESENT, FAVOR ADENOCARCINOMA. - Impressions ITS Impressions Head CT 02/13/18 17:52 CONCLUSION: 1. No acute hemorrhage, mass affect or evidence of acute infarction. 2. Focal area of encephalomalacia involving the posterior right frontal lobe most consistent with sequelae of prior infarction or hemorrhage. . Chest CTA 02/13/18 20:01 CONCLUSION: 1. No evidence of acute pulmonary embolism. 2. Right hilar mass with narrowing of the right pulmonary artery and proximal branch vessels. Findings concerning for adenopathy versus primary bronchogenic carcinoma. 3. Moderate size right effusion with consolidation in the right lower lobe. 4. Underlying emphysema. Chest X-Ray 02/14/18 00:00 CONCLUSION: Status post right thoracentesis. No evidence of pneumothorax. Thoracentesis Ultrasound 02/14/18 00:00 CONCLUSION: 1. Status post successful right-sided thoracentesis. Cervical Spine MRI 02/15/18 00:00 CONCLUSION: 1. Abnormal marrow in C3 suspicious for metastatic disease. 2. CT scan of the chest head raises suspicion of a lung primary 3. Reversal normal cervical lordosis with degenerative changes and moderate spinal stenosis at C5-C6. Head MRI 02/15/18 00:00 CONCLUSION: 1. 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 2. 5 mm left parietal cavernoma 3. No evidence of acute infarct, hemorrhage, mass or enhancing lesions. Lumbar Spine MRI 02/16/18 00:00 CONCLUSION: 1. Enhancing intraosseous lesions within the T12 and L4 vertebral bodies characteristic of metastatic disease. 2. No evidence of pathologic compression fracture. 3. Mild to moderate degenerative disc disease as described. 4. No evidence of epidural or intradural enhancing masses. Thoracic Spine MRI 02/16/18 00:00 CONCLUSION: 1. 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 Discharge Plan - Discharge Disposition Patient Disposition: 01 Discharge Home - Discharge Condition Condition: Stable - Discharge Order Discharge Orders: Discharge Order (Routine); Ordered 02/17/18 Ordered By: Rodrigo Pittman - Discharge Details Anticipated Discharge Date: 02/17/18 - Physicians Team Primary Care Provider: Clifton Red Attending Provider: Jorge Hunter Other Providers: Carleen Miranda MD ; Adam Mulligan MD ; Hardeep Raphael MD
== END 2018-02-17 13:15 | disposition home or self-care (01) ==
LOC: PHEDA 17:22 → PHED 17:22 → PH3 23:47
PROVIDERS: ADMIT Family Medicine; ATTEND Family Medicine
DX: K86.1 Other chronic pancreatitis; J15.9 Unspecified bacterial pneumonia; R64 Cachexia; R91.8 Other nonspecific abnormal finding of lung field; R63.4 Abnormal weight loss; F17.210 Nicotine dependence, cigarettes, uncomplicated; J18.1 Lobar pneumonia, unspecified organism; R42 Dizziness and giddiness; J44.0 Chronic obstructive pulmonary disease with (acute) lower respiratory infection; J90 Pleural effusion, not elsewhere classified; R51 Headache; Z68.1 Body mass index [BMI] 19.9 or less, adult; K74.60 Unspecified cirrhosis of liver